=== PATIENT | male | born 1945 | race Caucasian/White ===

== ENCOUNTER 2016-10-22 13:19 | Inpatient (IN) | payer MEDICARE, BC ==
[~2016-10-22] VITALS: Ht 177.8 cm; Wt 140.8 kg
[2016-10-22] VITALS (194 sets, daily range): BP systolic 87; BP diastolic 67; O2SAT 94–100
[~2016-10-22 13:19] MED LIST: 00186-0370-20 IH; ACTOS 45MG45 MG/TAB PO; ALLOPURINOL100 MG PO; ALTABAX15 GM TP; ALTACE2.5 MG PO; AMOXICILLIN 50500 MG PO; ASPIRIN 32325 MG/TAB PO; BACTRIM DS 8001 TAB PO; CALCITRIOL PO; COLACE 100100 MG/CAP PO; COREG 25MG25 MG/TAB PO; COUMADIN; CYMBALTA 60MG60 MG PO; DEMADEX 20MG20 M1 PO; ERGOCALCIFER50000 IU PO; FUROSEMIDE; GLYBURIDE; HUMALOG100 U/ML SQ; IRON325 MG PO; JANUVIA 100MG100 MG PO; KLOR-CON M2020 MEQ PO; LASIX 20MG TABL20 MG; LEVEMIR FLEX100 U/ML SQ; LIPITOR 80MG80 MG PO; MAG-OX 400400 MG/TAB PO; MASON NATURAL2000 IU PO; MIRALAX PA17 GM/Dose PO; NORCO 325 MG-51 TAB PO; NOVOLOG 100U100 U/M1 SQ; NYSTATIN POWDER15 GM TOP; PLAVIX 75MG TAB75 MG PO; POTASSIUM CL 220 MEQ PO; PRINIVIL5 MG PO; PROAIR HFA0.09 MG/AC IH; ROXICODONE 55 MG/TAB PO; RT SPIRIVA18 MCG IH; SPECTAZOLE 1% C15 GM TP; ULORIC80 MG PO; XARELTO20 MG PO; [UNRECOGNIZED DRUG - OTHER] PO
[2016-10-22] MEDS ORDERED: SANCTURA XR60 MG PO (13:29)
[2016-10-22] MEDS ORDERED: PROSCAR 5MG5 MG PO (13:29)
[2016-10-22 14:40] LABS: PH 5 (5-8); SQUAMOUS EPITHELIAL None Seen /hpf; URINE APPEARANCE Hazy; URINE BACTERIA None Seen /hpf; URINE BILIRUBIN Negative (NEGATIVE); URINE BLOOD 1+ (NEGATIVE); URINE COLOR Yellow; URINE GLUCOSE Negative (NEGATIVE); URINE KETONE Negative (NEGATIVE); URINE UROBILINOGEN Negative (NEGATIVE)
[2016-10-22 15:56] LABS: HEMATOCRIT 46.2 % (42.0-52.0); HEMOGLOBIN 15.1 g/dl (13.5-18.0); MEAN CELL VOLUME 89 fl (80.0-100.0); MEAN CORPUSCULAR HEMOGLOBIN 29 pg (27.0-31.0); MEAN CORPUSCULAR HGB CONC 33 g/dl (33.0-37.0); MEAN PLATELET VOLUME 8.7 fl (7.4-10.4); PLATELET COUNT 365 K/mm3 (130-400); RED BLOOD COUNT 5.19 M/mm3 (4.20-5.60); REDCELL DISTRIBUTION WIDTH-CV 14.8 % (11.5-14.5)
[2016-10-22 16:01] LABS: ADD PATHOLOGY DIFF REVIEW NO; ADJUSTED CALCIUM 10.1 mg/dL (8.4-10.2); ALBUMIN 4.1 gm/dL (3.5-5.0); BILIRUBIN,TOTAL 0.9 mg/dL (0.0-1.0); CALCIUM 10.2 mg/dL (8.4-10.2); CREATININE, serum 1.58 mg/dL (0.66-1.25); POTASSIUM 3.4 mmol/L (3.4-5.0); TOTAL PROTEIN 8.5 gm/dL (6.4-8.2)
[2016-10-22 16:31] LABS: BAND 34 % (0-10); NEUTROPHILS 58 % (42.0-75.2); TOTAL CELLS COUNTED 100
[2016-10-22 17:19] LABS: INR 2.3 (0.8-3.0); PROTHROMBIN TIME 25.6 SECONDS (9.7-12.8)
[2016-10-22 17:22] LABS: PARTIAL THROMBOPLASTIN TIME 37.4 SECONDS (26.0-37.0)
[2016-10-22] MEDS ORDERED: VITAMIN D 1001000 IU PO (18:15)
[2016-10-22 21:33] LABS: VENOUS BLOOD GAS BE -2.4 (-4-4)
[2016-10-22 21:34] LABS: VENOUS BLOOD GAS SAO2 61.6 % (60-80); VENOUS BLOOD GAS SITE CENTRAL LINE
[2016-10-22 22:50] LABS: ALLEN TEST NO; ARTERIAL BLD GAS O2 SATURATION 94.5 % (92-100); ARTERIAL BLD GAS TCO2 CT 23.9; ARTERIAL BLOOD GAS HCO3 22.7 meq/L (22-26); ARTERIAL BLOOD GAS PHT 7.39 C (7.35-7.45); ARTERIAL BLOOD GAS pH 7.39 (7.35-7.45); ATS? YES; OXYHEMOGLOBIN 93.4 %
[2016-10-22 23:30] LABS: POTASSIUM 3.4 mmol/L (3.4-5.0)
[2016-10-22 23:34] LABS: C-REACTIVE PROTEIN 6.6 mg/dL (0.0-0.9); MAGNESIUM 1.4 mg/dL (1.6-2.3); PHOSPHOROUS 3.8 mg/dL (2.5-4.5)
[2016-10-22 23:45] LABS: TROPONIN-I 0.091 ng/mL (0.000-0.034)
[2016-10-23] VITALS (1260 sets, daily range): BP systolic 64–142; BP diastolic 39–76; PULSE 76–128; TEMP 96.3–98.5; O2SAT 95–100
[2016-10-23 01:52] LABS: HEMATOCRIT 37.4 % (42.0-52.0); MEAN CELL VOLUME 91 fl (80.0-100.0); MEAN CORPUSCULAR HEMOGLOBIN 29 pg (27.0-31.0); MEAN CORPUSCULAR HGB CONC 32 g/dl (33.0-37.0); MEAN PLATELET VOLUME 8.6 fl (7.4-10.4); PLATELET COUNT 313 K/mm3 (130-400); RED BLOOD COUNT 4.13 M/mm3 (4.20-5.60); REDCELL DISTRIBUTION WIDTH-CV 15.2 % (11.5-14.5)
[2016-10-23 01:56] LABS: WHITE BLOOD COUNT 24.9 K/mm3 (4.8-10.8)
[2016-10-23 01:57] LABS: ADD PATHOLOGY DIFF REVIEW NO
[2016-10-23 02:00] LABS: VENOUS BLOOD GAS BE 0.4 (-4-4); VENOUS BLOOD GAS SAO2 51.6 % (60-80); VENOUS BLOOD GAS SITE CENTRAL LINE
[2016-10-23 02:01] LABS: ADJUSTED CALCIUM 9.2 mg/dL (8.4-10.2); ALBUMIN 2.8 gm/dL (3.5-5.0); BILIRUBIN,TOTAL 0.8 mg/dL (0.0-1.0); CALCIUM 8.2 mg/dL (8.4-10.2); CREATININE, serum 1.92 mg/dL (0.66-1.25); POTASSIUM 3.3 mmol/L (3.4-5.0); TOTAL PROTEIN 6.2 gm/dL (6.4-8.2)
[2016-10-23 02:02] LABS: BAND 45 % (0-10); NEUTROPHILS 46 % (42.0-75.2); TOTAL CELLS COUNTED 100
[2016-10-23 02:14] LABS: TROPONIN-I 0.106 ng/mL (0.000-0.034)
[2016-10-23 05:23] LABS: INR 1.3 (0.8-3.0)
[2016-10-23 05:27] LABS: PH 5 (5-8); SQUAMOUS EPITHELIAL 0-2 /hpf; URINE APPEARANCE Cloudy; URINE BACTERIA Rare /hpf; URINE BILIRUBIN Negative (NEGATIVE); URINE BLOOD 3+ (NEGATIVE); URINE COLOR Amber; URINE GLUCOSE Negative (NEGATIVE); URINE KETONE Negative (NEGATIVE); URINE RBC >50 /hpf; URINE UROBILINOGEN Negative (NEGATIVE); URINE WBC >50 /hpf
[2016-10-23 05:29] LABS: MAGNESIUM 2.1 mg/dL (1.6-2.3); PHOSPHOROUS 2.8 mg/dL (2.5-4.5)
[2016-10-23 05:33] LABS: VENOUS BLOOD GAS BE -4.9 (-4-4); VENOUS BLOOD GAS SITE CENTRAL LINE
[2016-10-23 05:52] LABS: ALLEN TEST NO; ARTERIAL BLD GAS O2 SATURATION 95.6 % (92-100); ARTERIAL BLOOD GAS BASE EXCESS -5.2 (-2-2); ARTERIAL BLOOD GAS HCO3 19.9 meq/L (22-26); ARTERIAL BLOOD GAS PHT 7.35 C (7.35-7.45); ARTERIAL BLOOD GAS PO2 87.6 mmHg (80-100); ARTERIAL BLOOD GAS PO2T 87.6 (80-100); ARTERIAL BLOOD GAS pH 7.35 (7.35-7.45); ATS? YES; OXYHEMOGLOBIN 94.6 %
[2016-10-23 06:16] LABS: POTASSIUM 4.4 mmol/L (3.4-5.0)
[2016-10-23 11:48] LABS: GLUCOSE,PLEURAL FLUID 108 mg/dL
[2016-10-23 11:54] LABS: VENOUS BLOOD GAS BE -3.4 (-4-4); VENOUS BLOOD GAS SAO2 74.1 % (60-80)
[2016-10-23 11:55] LABS: VENOUS BLOOD GAS SITE CENTRAL LINE
[2016-10-23 12:07] LABS: CALCIUM 7.9 mg/dL (8.4-10.2); CREATININE, serum 2.04 mg/dL (0.66-1.25); POTASSIUM 3.8 mmol/L (3.4-5.0)
[2016-10-23 13:21] LABS: PLEURAL FLUID - PMN 48.1 % (0-25)
[2016-10-23 13:21] LABS: CREATININE, serum 2.04 mg/dL (0.66-1.25); FRACTIONAL EXCRETION OF NA+ 0.1 %
[2016-10-23 14:06] LABS: PLEURAL FLUID LEFT SIDE
[2016-10-23 14:07] LABS: PLEURAL FLUID APPEARANCE CLOUDY; PLEURAL FLUID COLOR RED
[2016-10-23 15:14] LABS: BRONCH WASH FLUID MONONUCLEAR 5 % (0-75)
[2016-10-23 15:15] LABS: BRONCH WASH POLY - PMN 95 % (0-25)
[2016-10-23 20:23] LABS: CALCIUM 8.3 mg/dL (8.4-10.2); CREATININE, serum 1.98 mg/dL (0.66-1.25); MAGNESIUM 1.8 mg/dL (1.6-2.3); PHOSPHOROUS 3.3 mg/dL (2.5-4.5)
[2016-10-23 20:54] LABS: ARTERIAL BLD GAS TCO2 CT 22.4; ARTERIAL BLOOD GAS BASE EXCESS -3.2 (-2-2); ARTERIAL BLOOD GAS HCO3 21.3 meq/L (22-26); ARTERIAL BLOOD GAS PHT 7.39 C (7.35-7.45); ARTERIAL BLOOD GAS PO2 96.8 mmHg (80-100); ARTERIAL BLOOD GAS PO2T 96.8 (80-100); ARTERIAL BLOOD GAS pH 7.39 (7.35-7.45); OXYHEMOGLOBIN 96.3 %
[2016-10-23 20:55] LABS: ALLEN TEST NO; ATS? NO
[2016-10-24] VITALS (1219 sets, daily range): BP systolic 90–129; BP diastolic 40–56; PULSE 60–87; TEMP 97.7–99; O2SAT 90–100
[2016-10-24 04:14] LABS: ARTERIAL BLD GAS O2 SATURATION 97.3 % (92-100); ARTERIAL BLOOD GAS BASE EXCESS -5.9 (-2-2); ARTERIAL BLOOD GAS HCO3 18.1 meq/L (22-26); ARTERIAL BLOOD GAS PHT 7.39 C (7.35-7.45); ARTERIAL BLOOD GAS pH 7.39 (7.35-7.45); OXYHEMOGLOBIN 96.4 %
[2016-10-24 04:16] LABS: ABG VENTILATOR TIDAL VOLUME 500 mL; ALLEN TEST NO; ATS? NO
[2016-10-24 05:20] LABS: BASO % 0.2 % (0.0-2.0); GRAN # 17.3 (1.4-6.5); GRAN % 91.2 % (42.2-75.2); LYMPH # 0.4 (1.2-3.4); LYMPH % 1.9 % (20.0-51.0); MEAN CELL VOLUME 91 fl (80.0-100.0); MEAN CORPUSCULAR HGB CONC 32 g/dl (33.0-37.0); MEAN PLATELET VOLUME 8.9 fl (7.4-10.4); MONO # 1.1 (0.1-0.6); MONO % 5.8 % (1.7-9.3); PLATELET COUNT 248 K/mm3 (130-400); REDCELL DISTRIBUTION WIDTH-CV 15.4 % (11.5-14.5); WHITE BLOOD COUNT 18.9 K/mm3 (4.8-10.8)
[2016-10-24 05:29] LABS: INR 1.4 (0.8-3.0); PROTHROMBIN TIME 15.8 SECONDS (9.7-12.8)
[2016-10-24 05:31] LABS: PARTIAL THROMBOPLASTIN TIME 38.6 SECONDS (26.0-37.0)
[2016-10-24 05:33] LABS: HEMATOCRIT 26.5 % (42.0-52.0); HEMOGLOBIN 8.5 g/dl (13.5-18.0); MEAN CORPUSCULAR HEMOGLOBIN 29 pg (27.0-31.0)
[2016-10-24 05:41] LABS: ADJUSTED CALCIUM 9.4 mg/dL (8.4-10.2); ALBUMIN 2.7 gm/dL (3.5-5.0); BILIRUBIN,TOTAL 0.7 mg/dL (0.0-1.0); CALCIUM 8.4 mg/dL (8.4-10.2); CREATININE, serum 1.81 mg/dL (0.66-1.25); MAGNESIUM 1.8 mg/dL (1.6-2.3); PHOSPHOROUS 3.1 mg/dL (2.5-4.5); TOTAL PROTEIN 5.5 gm/dL (6.4-8.2)
[2016-10-24 11:54] LABS: ARTERIAL BLD GAS O2 SATURATION 95.1 % (92-100); ARTERIAL BLD GAS TCO2 CT 20.8; ARTERIAL BLOOD GAS BASE EXCESS -4.6 (-2-2); ARTERIAL BLOOD GAS HCO3 19.7 meq/L (22-26); ARTERIAL BLOOD GAS PHT 7.39 C (7.35-7.45); ARTERIAL BLOOD GAS PO2 82.6 mmHg (80-100); ARTERIAL BLOOD GAS PO2T 82.6 (80-100); ARTERIAL BLOOD GAS pH 7.39 (7.35-7.45); OXYHEMOGLOBIN 94.1 %
[2016-10-24 11:55] LABS: ATS? NO
[2016-10-24 12:27] LABS: HEMATOCRIT 26.1 % (42.0-52.0); HEMOGLOBIN 8.3 g/dl (13.5-18.0)
[2016-10-25] VITALS (986 sets, daily range): BP systolic 119–155; BP diastolic 44–66; PULSE 63–75; TEMP 97.8–99.8; O2SAT 89–100
[2016-10-25 05:05] LABS: ARTERIAL BLD GAS TCO2 CT 23.1; ARTERIAL BLOOD GAS BASE EXCESS -2.4 (-2-2); ARTERIAL BLOOD GAS PHT 7.41 C (7.35-7.45); ARTERIAL BLOOD GAS pH 7.41 (7.35-7.45)
[2016-10-25 05:07] LABS: ALLEN TEST NO; ATS? NO
[2016-10-25 05:09] LABS: MEAN CELL VOLUME 92 fl (80.0-100.0); MEAN CORPUSCULAR HGB CONC 31 g/dl (33.0-37.0); MEAN PLATELET VOLUME 9.2 fl (7.4-10.4); PLATELET COUNT 218 K/mm3 (130-400); RED BLOOD COUNT 2.63 M/mm3 (4.20-5.60); REDCELL DISTRIBUTION WIDTH-CV 15.3 % (11.5-14.5); WHITE BLOOD COUNT 15.9 K/mm3 (4.8-10.8)
[2016-10-25 05:24] LABS: ADD PATHOLOGY DIFF REVIEW NO; HEMATOCRIT 24.2 % (42.0-52.0); HEMOGLOBIN 7.6 g/dl (13.5-18.0); MEAN CORPUSCULAR HEMOGLOBIN 29 pg (27.0-31.0)
[2016-10-25 05:25] LABS: INR 1.2 (0.8-3.0); PROTHROMBIN TIME 13.7 SECONDS (9.7-12.8)
[2016-10-25 05:28] LABS: PARTIAL THROMBOPLASTIN TIME 34.9 SECONDS (26.0-37.0)
[2016-10-25 05:34] LABS: ADJUSTED CALCIUM 9.8 mg/dL (8.4-10.2); ALBUMIN 2.6 gm/dL (3.5-5.0); BILIRUBIN,TOTAL 0.7 mg/dL (0.0-1.0); CALCIUM 8.7 mg/dL (8.4-10.2); CREATININE, serum 1.45 mg/dL (0.66-1.25); MAGNESIUM 1.8 mg/dL (1.6-2.3); PHOSPHOROUS 3.1 mg/dL (2.5-4.5); POTASSIUM 3.2 mmol/L (3.4-5.0); TOTAL PROTEIN 5.6 gm/dL (6.4-8.2)
[2016-10-25 07:00] LABS: BAND 21 % (0-10); HYPOCHROMIA 2+; NEUTROPHILS 75 % (42.0-75.2); PLATELET ESTIMATE NORMAL (NORMAL); TARGET CELLS 1+; TOTAL CELLS COUNTED 100
[2016-10-26] VITALS (1081 sets, daily range): BP systolic 131–155; BP diastolic 65–110; PULSE 60–74; TEMP 97.7–99.2; O2SAT 69–100
[2016-10-26 05:26] LABS: MEAN CELL VOLUME 90 fl (80.0-100.0); MEAN CORPUSCULAR HGB CONC 32 g/dl (33.0-37.0); MEAN PLATELET VOLUME 9.3 fl (7.4-10.4); PLATELET COUNT 241 K/mm3 (130-400); RED BLOOD COUNT 2.69 M/mm3 (4.20-5.60); REDCELL DISTRIBUTION WIDTH-CV 15.6 % (11.5-14.5); WHITE BLOOD COUNT 16.4 K/mm3 (4.8-10.8)
[2016-10-26 05:28] LABS: ADD PATHOLOGY DIFF REVIEW NO; HEMATOCRIT 24.3 % (42.0-52.0); HEMOGLOBIN 7.8 g/dl (13.5-18.0); MEAN CORPUSCULAR HEMOGLOBIN 29 pg (27.0-31.0)
[2016-10-26 05:33] LABS: INR 1.2 (0.8-3.0); PROTHROMBIN TIME 13.2 SECONDS (9.7-12.8)
[2016-10-26 05:46] LABS: ALBUMIN 2.5 gm/dL (3.5-5.0); BILIRUBIN,TOTAL 0.8 mg/dL (0.0-1.0); CALCIUM 8.8 mg/dL (8.4-10.2); CREATININE, serum 1.09 mg/dL (0.66-1.25); TOTAL PROTEIN 5.1 gm/dL (6.4-8.2)
[2016-10-26 06:04] LABS: BAND 24 % (0-10); NEUTROPHILS 73 % (42.0-75.2); TOTAL CELLS COUNTED 100
[2016-10-26 06:05] LABS: HYPOCHROMIA 1+; TARGET CELLS 1+
[2016-10-27] VITALS (506 sets, daily range): BP systolic 106–180; BP diastolic 62–99; PULSE 68–90; TEMP 97–98.4; O2SAT 38–100
[2016-10-27 04:53] LABS: MEAN CELL VOLUME 92 fl (80.0-100.0); MEAN CORPUSCULAR HGB CONC 31 g/dl (33.0-37.0); MEAN PLATELET VOLUME 9.1 fl (7.4-10.4); PLATELET COUNT 303 K/mm3 (130-400); RED BLOOD COUNT 3.13 M/mm3 (4.20-5.60); REDCELL DISTRIBUTION WIDTH-CV 15.7 % (11.5-14.5); WHITE BLOOD COUNT 17.3 K/mm3 (4.8-10.8)
[2016-10-27 05:04] LABS: HEMATOCRIT 28.7 % (42.0-52.0); MEAN CORPUSCULAR HEMOGLOBIN 29 pg (27.0-31.0)
[2016-10-27 05:05] LABS: ADD PATHOLOGY DIFF REVIEW NO; ADJUSTED CALCIUM 9.9 mg/dL (8.4-10.2); ALBUMIN 2.9 gm/dL (3.5-5.0); CREATININE, serum 0.97 mg/dL (0.66-1.25); TOTAL PROTEIN 6.4 gm/dL (6.4-8.2)
[2016-10-27 05:07] LABS: POTASSIUM 2.8 mmol/L (3.4-5.0)
[2016-10-27 05:17] LABS: BAND 4 % (0-10); METAMYELOCYTE 2 % (0-0); MYELOCYTE 2 % (0-0); NEUTROPHILS 85 % (42.0-75.2); PLATELET ESTIMATE NORMAL (NORMAL); TOTAL CELLS COUNTED 100
[2016-10-27 12:12] LABS: MAGNESIUM 1.6 mg/dL (1.6-2.3)
[2016-10-28 01:18] VITALS: BP 152/76; PULSE 82; TEMP 98.1
[2016-10-28 05:18] VITALS: BP 139/85; PULSE 64; TEMP 97.2
[2016-10-28 09:41] VITALS: BP 143/74; PULSE 75; TEMP 96.9
[2016-10-28 13:50] VITALS: BP 143/89; PULSE 67; TEMP 97.9
[2016-10-28 17:47] VITALS: BP 164/87; PULSE 82; TEMP 95.3
[2016-10-29 02:07] VITALS: BP 97/44; PULSE 50; TEMP 97.8
[2016-10-29 05:50] VITALS: BP 150/63; PULSE 87
[2016-10-29 06:59] LABS: MEAN CELL VOLUME 90 fl (80.0-100.0); MEAN CORPUSCULAR HGB CONC 32 g/dl (33.0-37.0); MEAN PLATELET VOLUME 8.9 fl (7.4-10.4); PLATELET COUNT 279 K/mm3 (130-400); RED BLOOD COUNT 3.22 M/mm3 (4.20-5.60); REDCELL DISTRIBUTION WIDTH-CV 16.2 % (11.5-14.5); WHITE BLOOD COUNT 19.5 K/mm3 (4.8-10.8)
[2016-10-29 07:07] LABS: MAGNESIUM 1.8 mg/dL (1.6-2.3); POTASSIUM 3.6 mmol/L (3.4-5.0)
[2016-10-29 07:23] LABS: ADD PATHOLOGY DIFF REVIEW NO; HEMATOCRIT 29.1 % (42.0-52.0); HEMOGLOBIN 9.2 g/dl (13.5-18.0); MEAN CORPUSCULAR HEMOGLOBIN 29 pg (27.0-31.0)
[2016-10-29 07:44] LABS: BAND 10 % (0-10); METAMYELOCYTE 2 % (0-0); MYELOCYTE 2 % (0-0); NEUTROPHILS 85 % (42.0-75.2); TOTAL CELLS COUNTED 100
[2016-10-29 11:28] LABS: CREATININE, serum 0.88 mg/dL (0.66-1.25)
[2016-10-29 17:35] VITALS: BP 120/44; PULSE 79; TEMP 97.7
[2016-10-29 18:49] LABS: ALBUMIN 2.5 gm/dL (3.5-5.0); BILIRUBIN,TOTAL 0.5 mg/dL (0.0-1.0); CALCIUM 8.8 mg/dL (8.4-10.2); CREATININE, serum 0.93 mg/dL (0.66-1.25); POTASSIUM 3.8 mmol/L (3.4-5.0); TOTAL PROTEIN 5.4 gm/dL (6.4-8.2)
[2016-10-29 19:07] LABS: MAGNESIUM 1.8 mg/dL (1.6-2.3); PHOSPHOROUS 2.6 mg/dL (2.5-4.5)
[2016-10-29 20:58] VITALS: BP 131/68; PULSE 80; TEMP 98.1
[2016-10-30 00:14] VITALS: BP 137/76; PULSE 70; TEMP 97.6
[2016-10-30 05:54] VITALS: BP 122/55; PULSE 74; TEMP 98.2
[2016-10-30 06:28] LABS: MEAN CELL VOLUME 92 fl (80.0-100.0); MEAN CORPUSCULAR HGB CONC 31 g/dl (33.0-37.0); MEAN PLATELET VOLUME 9.5 fl (7.4-10.4); PLATELET COUNT 245 K/mm3 (130-400); RED BLOOD COUNT 2.85 M/mm3 (4.20-5.60); REDCELL DISTRIBUTION WIDTH-CV 16.3 % (11.5-14.5); WHITE BLOOD COUNT 13.4 K/mm3 (4.8-10.8)
[2016-10-30 06:33] LABS: CALCIUM 8.6 mg/dL (8.4-10.2); CREATININE, serum 0.94 mg/dL (0.66-1.25); MAGNESIUM 1.7 mg/dL (1.6-2.3); PHOSPHOROUS 2.6 mg/dL (2.5-4.5); POTASSIUM 3.4 mmol/L (3.4-5.0)
[2016-10-30 06:39] LABS: ADD PATHOLOGY DIFF REVIEW NO; HEMATOCRIT 26.3 % (42.0-52.0); HEMOGLOBIN 8.2 g/dl (13.5-18.0); MEAN CORPUSCULAR HEMOGLOBIN 29 pg (27.0-31.0)
[2016-10-30 06:49] LABS: BAND 4 % (0-10); METAMYELOCYTE 2 % (0-0); MYELOCYTE 2 % (0-0); NEUTROPHILS 83 % (42.0-75.2); PLATELET ESTIMATE NORMAL (NORMAL); TOTAL CELLS COUNTED 100
[2016-10-30 09:56] VITALS: BP 153/77; PULSE 77; TEMP 98
[2016-10-30 13:41] VITALS: BP 122/68; PULSE 97; TEMP 97.5
[2016-10-30 17:06] LABS: HEMATOCRIT 27.4 % (42.0-52.0); HEMOGLOBIN 8.7 g/dl (13.5-18.0)
[2016-10-30 18:01] VITALS: BP 139/66; PULSE 73; TEMP 97.9
[2016-10-30 21:56] VITALS: BP 161/64; PULSE 86; TEMP 98.6
[2016-10-31] VITALS (14 sets, daily range): BP systolic 104–152; BP diastolic 45–85; PULSE 52–84; TEMP 97–98.2
[2016-10-31 07:04] LABS: CALCIUM 9.1 mg/dL (8.4-10.2); CREATININE, serum 0.95 mg/dL (0.66-1.25); MAGNESIUM 2.1 mg/dL (1.6-2.3); PHOSPHOROUS 3.3 mg/dL (2.5-4.5); POTASSIUM 3.7 mmol/L (3.4-5.0)
[2016-10-31 14:04] LABS: MEAN CELL VOLUME 95 fl (80.0-100.0); MEAN CORPUSCULAR HGB CONC 30 g/dl (33.0-37.0); MEAN PLATELET VOLUME 9.9 fl (7.4-10.4); PLATELET COUNT 251 K/mm3 (130-400); RED BLOOD COUNT 2.93 M/mm3 (4.20-5.60); REDCELL DISTRIBUTION WIDTH-CV 16.7 % (11.5-14.5); WHITE BLOOD COUNT 13.3 K/mm3 (4.8-10.8)
[2016-10-31 14:15] LABS: HEMATOCRIT 27.8 % (42.0-52.0); HEMOGLOBIN 8.4 g/dl (13.5-18.0); MEAN CORPUSCULAR HEMOGLOBIN 29 pg (27.0-31.0)
[2016-10-31 14:16] LABS: ADD PATHOLOGY DIFF REVIEW NO
[2016-10-31 15:20] LABS: BAND 10 % (0-10); METAMYELOCYTE 1 % (0-0); MYELOCYTE 2 % (0-0); NEUTROPHILS 71 % (42.0-75.2); PLATELET ESTIMATE NORMAL (NORMAL); TOTAL CELLS COUNTED 100
[2016-10-31 15:22] LABS: ANISOCYTOSIS 1+; POLYCHROMASIA 1+
[2016-11-01 02:16] VITALS: BP 115/56; PULSE 67; TEMP 98.1
[2016-11-01 04:45] VITALS: BP 116/32; PULSE 78; TEMP 98.2
[2016-11-01 07:45] LABS: BASO % 0.1 % (0.0-2.0); EOS # 0.1 (0.0-0.7); EOS % 0.7 % (0-4.0); GRAN # 10.6 (1.4-6.5); GRAN % 81.5 % (42.2-75.2); LYMPH # 0.9 (1.2-3.4); LYMPH % 6.7 % (20.0-51.0); MEAN CELL VOLUME 95 fl (80.0-100.0); MEAN CORPUSCULAR HGB CONC 31 g/dl (33.0-37.0); MEAN PLATELET VOLUME 9.9 fl (7.4-10.4); MONO # 0.9 (0.1-0.6); MONO % 7.2 % (1.7-9.3); PLATELET COUNT 224 K/mm3 (130-400); RED BLOOD COUNT 2.84 M/mm3 (4.20-5.60)
[2016-11-01 07:50] LABS: HEMATOCRIT 26.9 % (42.0-52.0); HEMOGLOBIN 8.3 g/dl (13.5-18.0); MEAN CORPUSCULAR HEMOGLOBIN 29 pg (27.0-31.0)
[2016-11-01 08:49] LABS: CALCIUM 8.9 mg/dL (8.4-10.2); CREATININE, serum 0.9 mg/dL (0.66-1.25); MAGNESIUM 2.3 mg/dL (1.6-2.3); PHOSPHOROUS 3.4 mg/dL (2.5-4.5); POTASSIUM 4.1 mmol/L (3.4-5.0)
[2016-11-01 10:09] VITALS: BP 148/65; PULSE 73; TEMP 97.3
[2016-11-01 14:41] VITALS: BP 184/85; PULSE 82; TEMP 97.3
[2016-11-01 16:48] VITALS: BP 159/67; PULSE 77; TEMP 97.7
[2016-11-01 22:27] VITALS: BP 115/24; PULSE 41; TEMP 98.5
[2016-11-02 01:46] VITALS: BP 137/40; PULSE 71; TEMP 98.3
[2016-11-02 04:11] VITALS: BP 114/67; PULSE 47; TEMP 98.2
[2016-11-02 07:50] LABS: BASO % 0.2 % (0.0-2.0); EOS # 0.3 (0.0-0.7); EOS % 1.4 % (0-4.0); GRAN # 15.6 (1.4-6.5); GRAN % 83.7 % (42.2-75.2); LYMPH # 1.1 (1.2-3.4); LYMPH % 5.9 % (20.0-51.0); MEAN CELL VOLUME 94 fl (80.0-100.0); MEAN CORPUSCULAR HGB CONC 31 g/dl (33.0-37.0); MEAN PLATELET VOLUME 9.7 fl (7.4-10.4); MONO # 1.1 (0.1-0.6); MONO % 5.6 % (1.7-9.3); PLATELET COUNT 250 K/mm3 (130-400); REDCELL DISTRIBUTION WIDTH-CV 17.2 % (11.5-14.5); WHITE BLOOD COUNT 18.6 K/mm3 (4.8-10.8)
[2016-11-02 08:04] LABS: HEMOGLOBIN 8.9 g/dl (13.5-18.0); MEAN CORPUSCULAR HEMOGLOBIN 29 pg (27.0-31.0)
[2016-11-02 08:08] LABS: CREATININE, serum 0.8 mg/dL (0.66-1.25); MAGNESIUM 2.1 mg/dL (1.6-2.3); POTASSIUM 3.6 mmol/L (3.4-5.0)
[2016-11-02 09:44] VITALS: BP 152/62; PULSE 85; TEMP 97.7
[2016-11-02 15:35] VITALS: BP 174/67; PULSE 73; TEMP 96.5
[2016-11-02 18:13] VITALS: BP 163/75; PULSE 65; TEMP 97.9
[2016-11-02 22:28] VITALS: BP 152/84; PULSE 75; TEMP 97.5
[2016-11-03 02:03] VITALS: BP 153/73; PULSE 75; TEMP 97.6
[2016-11-03 06:06] VITALS: BP 152/70; PULSE 73; TEMP 97.3
[2016-11-03 07:32] LABS: MEAN CELL VOLUME 93 fl (80.0-100.0); MEAN CORPUSCULAR HGB CONC 31 g/dl (33.0-37.0); MEAN PLATELET VOLUME 9.8 fl (7.4-10.4); PLATELET COUNT 246 K/mm3 (130-400); RED BLOOD COUNT 3.12 M/mm3 (4.20-5.60); REDCELL DISTRIBUTION WIDTH-CV 17.4 % (11.5-14.5); WHITE BLOOD COUNT 17.9 K/mm3 (4.8-10.8)
[2016-11-03 07:37] LABS: ADD PATHOLOGY DIFF REVIEW NO; MEAN CORPUSCULAR HEMOGLOBIN 29 pg (27.0-31.0)
[2016-11-03 08:28] LABS: BAND 1 % (0-10); NEUTROPHILS 85 % (42.0-75.2); TOTAL CELLS COUNTED 100
[2016-11-03 08:29] LABS: ANISOCYTOSIS 2+; HYPOCHROMIA 2+; POLYCHROMASIA 2+
[2016-11-03 10:20] VITALS: BP 144/77; PULSE 62; TEMP 98.1
[2016-11-03 14:53] VITALS: BP 128/85; PULSE 61; TEMP 98.1
[2016-11-03 18:02] VITALS: BP 125/48; PULSE 82; TEMP 98.9
[2016-11-03 20:55] VITALS: BP 138/51; PULSE 73; TEMP 65
[2016-11-04 02:02] VITALS: BP 113/50; PULSE 84; TEMP 97.3
[2016-11-04 05:02] VITALS: BP 104/44; PULSE 89; TEMP 98.4
[2016-11-04 08:06] LABS: CALCIUM 8.6 mg/dL (8.4-10.2); CREATININE, serum 0.94 mg/dL (0.66-1.25); MAGNESIUM 1.8 mg/dL (1.6-2.3); POTASSIUM 4.2 mmol/L (3.4-5.0)
[2016-11-04 08:11] LABS: VANCOMYCIN TROUGH 16.7 ug/mL (7.00-20.00)
[2016-11-04 09:54] VITALS: BP 105/37; PULSE 94; TEMP 98.2
[2016-11-04 13:50] VITALS: BP 120/51; PULSE 91; TEMP 95.6
[2016-11-04 17:03] VITALS: BP 114/65; PULSE 90; TEMP 97.4
[2016-11-04 21:27] VITALS: BP 120/63; PULSE 58; TEMP 98.2
[2016-11-05] VITALS (7 sets, daily range): BP systolic 110–142; BP diastolic 48–70; PULSE 45–83; TEMP 97.2–98.6
[2016-11-05 06:44] LABS: MEAN CELL VOLUME 90 fl (80.0-100.0); MEAN CORPUSCULAR HGB CONC 33 g/dl (33.0-37.0); MEAN PLATELET VOLUME 10.3 fl (7.4-10.4); PLATELET COUNT 210 K/mm3 (130-400); RED BLOOD COUNT 2.94 M/mm3 (4.20-5.60); REDCELL DISTRIBUTION WIDTH-CV 17.4 % (11.5-14.5); WHITE BLOOD COUNT 16.2 K/mm3 (4.8-10.8)
[2016-11-05 06:50] LABS: ADD PATHOLOGY DIFF REVIEW NO; HEMATOCRIT 26.5 % (42.0-52.0); HEMOGLOBIN 8.6 g/dl (13.5-18.0); MEAN CORPUSCULAR HEMOGLOBIN 29 pg (27.0-31.0)
[2016-11-05 07:20] LABS: BAND 6 % (0-10); METAMYELOCYTE 1 % (0-0); NEUTROPHILS 82 % (42.0-75.2); PLATELET ESTIMATE NORMAL (NORMAL); SCHISTOCYTES 1+; TOTAL CELLS COUNTED 100
[2016-11-06 01:52] VITALS: BP 127/68; PULSE 76; TEMP 98.2
[2016-11-06 05:40] VITALS: BP 164/82; TEMP 98.3
[2016-11-06 07:22] LABS: BASO % 0.1 % (0.0-2.0); EOS # 0.1 (0.0-0.7); EOS % 0.4 % (0-4.0); GRAN # 12.7 (1.4-6.5); GRAN % 80.7 % (42.2-75.2); LYMPH # 1.4 (1.2-3.4); LYMPH % 8.8 % (20.0-51.0); MEAN CELL VOLUME 90 fl (80.0-100.0); MEAN CORPUSCULAR HGB CONC 32 g/dl (33.0-37.0); MEAN PLATELET VOLUME 10.4 fl (7.4-10.4); MONO # 1.3 (0.1-0.6); MONO % 8.3 % (1.7-9.3); PLATELET COUNT 232 K/mm3 (130-400); RED BLOOD COUNT 3.06 M/mm3 (4.20-5.60); REDCELL DISTRIBUTION WIDTH-CV 17.6 % (11.5-14.5); WHITE BLOOD COUNT 15.8 K/mm3 (4.8-10.8)
[2016-11-06 07:36] LABS: ADJUSTED CALCIUM 9.6 mg/dL (8.4-10.2); ALBUMIN 2.7 gm/dL (3.5-5.0); BILIRUBIN,TOTAL 0.6 mg/dL (0.0-1.0); CALCIUM 8.6 mg/dL (8.4-10.2); CREATININE, serum 1.03 mg/dL (0.66-1.25); MAGNESIUM 1.9 mg/dL (1.6-2.3); PHOSPHOROUS 3.2 mg/dL (2.5-4.5); POTASSIUM 3.6 mmol/L (3.4-5.0); TOTAL PROTEIN 5.8 gm/dL (6.4-8.2)
[2016-11-06 07:39] LABS: HEMATOCRIT 27.5 % (42.0-52.0); HEMOGLOBIN 8.7 g/dl (13.5-18.0); MEAN CORPUSCULAR HEMOGLOBIN 28 pg (27.0-31.0)
[2016-11-06 10:59] VITALS: BP 146/51; PULSE 80; TEMP 97.9
[2016-11-06 14:22] VITALS: BP 133/62; PULSE 76; TEMP 97.6
[2016-11-06 17:33] VITALS: BP 115/46; PULSE 73; TEMP 97.9
[2016-11-06 21:33] VITALS: BP 116/51; PULSE 70; TEMP 98.1
[2016-11-07 02:04] VITALS: BP 114/78; PULSE 66; TEMP 97.8
[2016-11-07 04:55] VITALS: BP 131/70; PULSE 70; TEMP 98.7
[2016-11-07 10:48] LABS: ARTERIAL BLD GAS O2 SATURATION 94.3 % (92-100); ARTERIAL BLD GAS TCO2 CT 30.2; ARTERIAL BLOOD GAS BASE EXCESS 5.4 (-2-2); ARTERIAL BLOOD GAS PHT 7.49 C (7.35-7.45); ARTERIAL BLOOD GAS PO2 72.2 mmHg (80-100); ARTERIAL BLOOD GAS PO2T 72.2 (80-100); ARTERIAL BLOOD GAS pH 7.49 (7.35-7.45); OXYHEMOGLOBIN 93.8 %
[2016-11-07 10:49] LABS: ALLEN TEST NO; ATS? YES
[2016-11-07 15:06] VITALS: BP 139/92; PULSE 72; TEMP 97.8
[2016-11-07 18:58] VITALS: BP 96/46; PULSE 83; TEMP 99.2
[2016-11-07 22:28] VITALS: BP 118/54; PULSE 81; TEMP 98
[2016-11-08 05:36] VITALS: BP 138/84; PULSE 86; TEMP 98.3
[2016-11-08 07:26] LABS: CALCIUM 8.2 mg/dL (8.4-10.2); CREATININE, serum 1.05 mg/dL (0.66-1.25); MAGNESIUM 1.8 mg/dL (1.6-2.3); PHOSPHOROUS 3.8 mg/dL (2.5-4.5); POTASSIUM 3.9 mmol/L (3.4-5.0)
[2016-11-08 07:27] LABS: BASO % 0.1 % (0.0-2.0); EOS # 0.1 (0.0-0.7); EOS % 0.9 % (0-4.0); GRAN % 75.2 % (42.2-75.2); LYMPH # 1.2 (1.2-3.4); LYMPH % 12.6 % (20.0-51.0); MEAN CELL VOLUME 92 fl (80.0-100.0); MEAN CORPUSCULAR HGB CONC 31 g/dl (33.0-37.0); MEAN PLATELET VOLUME 10.1 fl (7.4-10.4); MONO # 0.9 (0.1-0.6); MONO % 10.2 % (1.7-9.3); PLATELET COUNT 230 K/mm3 (130-400); RED BLOOD COUNT 3.03 M/mm3 (4.20-5.60); REDCELL DISTRIBUTION WIDTH-CV 18.1 % (11.5-14.5); WHITE BLOOD COUNT 9.2 K/mm3 (4.8-10.8)
[2016-11-08 07:33] LABS: HEMATOCRIT 27.8 % (42.0-52.0); HEMOGLOBIN 8.7 g/dl (13.5-18.0); MEAN CORPUSCULAR HEMOGLOBIN 29 pg (27.0-31.0)
[2016-11-08 09:25] VITALS: BP 131/57; PULSE 68; TEMP 96.4
[2016-11-08] MEDS ORDERED: CIPRO 500MG TA500 MG PO (12:40)
[2016-11-08] MEDS ORDERED: FLAGYL500 MG PO (12:41)
[2016-11-08] MEDS ORDERED: DIFLUCAN 100MG100 MG PO (12:41)
[2016-11-08] MEDS ORDERED: PRILOSEC 20MG20 MG PO (12:44)
[2016-11-08 13:36] VITALS: BP 112/51; PULSE 75; TEMP 95.9
[2016-11-08 14:26] VITALS: BP 112/51; PULSE 75; TEMP 95.9
[2016-12-24] MEDS ORDERED: ULORIC80 MG PO (08:56)
[2016-12-27] MEDS ORDERED: CLEOCIN HCL300 MG PO (14:16)
== END 2016-11-08 15:00 | DRG 853 ==
LOC: COL.ER 13:19 → SURG 18:27 → ICU 18:27 → SURG 10-27 16:05
PROVIDERS: Anesthesiology Critical Care Medicine; Emergency Medicine; Family Medicine; Internal Medicine; Internal Medicine Pulmonary Disease; Surgery
PROC: 0DNS0ZZ (ICD-10-PCS; 2016-10-22)
PROC: 0B958ZZ Drainage of Right Middle Lobe Bronchus, Via Natural or Artificial Opening Endoscopic (ICD-10-PCS; 2016-10-22)
PROC: 0B968ZZ Drainage of Right Lower Lobe Bronchus, Via Natural or Artificial Opening Endoscopic (ICD-10-PCS; 2016-10-22)
PROC: 0DJ08ZZ Inspection of Upper Intestinal Tract, Via Natural or Artificial Opening Endoscopic (ICD-10-PCS; 2016-10-22)
PROC: 0BJ08ZZ Inspection of Tracheobronchial Tree, Via Natural or Artificial Opening Endoscopic (ICD-10-PCS; 2016-10-22)
PROC: 5A1945Z Respiratory Ventilation, 24-96 Consecutive Hours (ICD-10-PCS; 2016-10-22)
PROC: 0WQF0ZZ Repair Abdominal Wall, Open Approach (ICD-10-PCS; principal; 2016-10-22 06:30)
PROC: 0WJG0ZZ Inspection of Peritoneal Cavity, Open Approach (ICD-10-PCS; 2016-10-22 06:30)
PROC: 0W9B3ZX Drainage of Left Pleural Cavity, Percutaneous Approach, Diagnostic (ICD-10-PCS; 2016-10-23)
PROC: 0B968ZZ Drainage of Right Lower Lobe Bronchus, Via Natural or Artificial Opening Endoscopic (ICD-10-PCS; 2016-10-29)
PROC: 0B9B8ZZ Drainage of Left Lower Lobe Bronchus, Via Natural or Artificial Opening Endoscopic (ICD-10-PCS; 2016-10-29)
PROC: 0B968ZZ Drainage of Right Lower Lobe Bronchus, Via Natural or Artificial Opening Endoscopic (ICD-10-PCS; 2016-11-07)
PROC: 0B988ZZ Drainage of Left Upper Lobe Bronchus, Via Natural or Artificial Opening Endoscopic (ICD-10-PCS; 2016-11-07)
DX: A41.02 Sepsis due to Methicillin resistant Staphylococcus aureus (principal); K65.0 Generalized (acute) peritonitis; K55.019 Acute (reversible) ischemia of small intestine, extent unspecified; R65.21 Severe sepsis with septic shock; J15.212 Pneumonia due to Methicillin resistant Staphylococcus aureus; J96.21 Acute and chronic respiratory failure with hypoxia; K43.0 Incisional hernia with obstruction, without gangrene; K42.0 Umbilical hernia with obstruction, without gangrene; J90 Pleural effusion, not elsewhere classified; I13.0 Hypertensive heart and chronic kidney disease with heart failure and stage 1 through stage 4 chronic kidney disease, or unspecified chronic kidney disease; Z68.42 Body mass index [BMI] 45.0-49.9, adult; E87.2 Acidosis; K91.3 Postprocedural intestinal obstruction; E46 Unspecified protein-calorie malnutrition; N17.9 Acute kidney failure, unspecified; F05 Delirium due to known physiological condition; I50.32 Chronic diastolic (congestive) heart failure; J98.11 Atelectasis; E11.22 Type 2 diabetes mellitus with diabetic chronic kidney disease; N18.9 Chronic kidney disease, unspecified; E66.01 Morbid (severe) obesity due to excess calories; I25.10 Atherosclerotic heart disease of native coronary artery without angina pectoris; J44.9 Chronic obstructive pulmonary disease, unspecified; E87.6 Hypokalemia; F32.89 Other specified depressive episodes; F41.1 Generalized anxiety disorder; I48.91 Unspecified atrial fibrillation; Z79.01 Long term (current) use of anticoagulants; Z95.5 Presence of coronary angioplasty implant and graft; K66.0 Peritoneal adhesions (postprocedural) (postinfection)
CPT/HCPCS: 90791-AI; 99223-AI; 99232-AI; 99233-AI; A4315; A9284; B4178; C1751; C1894; C9113; C9132; G9654; J0282; J0610; J0744; J1450; J1644; J1720; J1815; J1940; J2250; J2270; J2370; J2405; J2704; J2997; J3010; J3370; J3475; J3480; J7030; J7050; J7060; J7120; J7131; J7512; P9047

== ENCOUNTER 2016-12-04 20:36 | Inpatient (IN) | payer MEDICARE, BC ==
[~2016-12-04] VITALS: Ht 177.8 cm; Wt 131.9 kg
[~2016-12-04 20:36] MED LIST changes: -AZO-STANDARD95 MG PO; -CLEOCIN HCL300 MG PO; -DEMADEX10 MG PO; -DOXYCYCLINE 10100 MG PO; -DOXYCYCLINE HY100 MG PO; -GAS RELIEF EXT125 MG PO; -HEPARIN LOCK FLU5 M1 IV; -ILOTYCIN5 MG/GM OP; -IPRATROPIUM BROM3 M1 IH; -K-DUR20 MEQ PO; -LEVEMIR100 U/ML SQ; -LOPRESSOR 225 MG/TAB PO; -MILK OF MA400 MG/52; -MUCINEX 60600 MG/TA1 PO; -MUCINEX D 12001 TER PO; -MUCINEX DM 30 M1 TE1; -NOVOLOG FLEX100 U/ML SQ; -NS INT FLUSH 1010 ML IV; -NYAMYC100000 U/G TP; -PROBIOTIC FORMU1 CAP PO; -PROVENTIL0.09 MG/A1 IH; -STOOL SOFTENER100 M2 PO; -TOPROL XL 25MG25 MG PO; -TYLENOL 325MG325 MG PO; -VITAMIN D 50,1.25 MG PO; -XOPENEX HF0.045 MG/A IH; -XOPENEX HF0.045 MG/A INH; -[UNRECOGNIZED DRUG - OTHER] PO
[2016-12-04 21:40] LABS: BASO % 0.4 % (0.0-2.0); EOS # 0.1 (0.0-0.7); GRAN # 7.7 (1.4-6.5); GRAN % 71.4 % (42.2-75.2); LYMPH # 1.9 (1.2-3.4); LYMPH % 17.2 % (20.0-51.0); MEAN CELL VOLUME 91 fl (80.0-100.0); MEAN CORPUSCULAR HGB CONC 31 g/dl (33.0-37.0); MEAN PLATELET VOLUME 8.6 fl (7.4-10.4); MONO % 9.2 % (1.7-9.3); PLATELET COUNT 302 K/mm3 (130-400); RED BLOOD COUNT 3.91 M/mm3 (4.20-5.60); REDCELL DISTRIBUTION WIDTH-CV 16.1 % (11.5-14.5); WHITE BLOOD COUNT 10.8 K/mm3 (4.8-10.8)
[2016-12-04 21:41] LABS: HEMATOCRIT 35.7 % (42.0-52.0); MEAN CORPUSCULAR HEMOGLOBIN 28 pg (27.0-31.0)
[2016-12-04 21:47] LABS: PARTIAL THROMBOPLASTIN TIME 43.3 SECONDS (26.0-37.0)
[2016-12-04 21:50] LABS: ADJUSTED CALCIUM 9.5 mg/dL (8.4-10.2); ALBUMIN 3.4 gm/dL (3.5-5.0); BILIRUBIN,TOTAL 0.8 mg/dL (0.0-1.0); POTASSIUM 4.4 mmol/L (3.4-5.0); TOTAL PROTEIN 6.9 gm/dL (6.4-8.2)
[2016-12-04 21:53] LABS: INR 2.3 (0.8-3.0); PROTHROMBIN TIME 25.9 SECONDS (9.7-12.8)
[2016-12-04 21:57] LABS: PH 5 (5-8); SQUAMOUS EPITHELIAL 0-2 /hpf; URINE APPEARANCE Clear; URINE BACTERIA Rare /hpf; URINE BILIRUBIN Negative (NEGATIVE); URINE BLOOD Negative (NEGATIVE); URINE COLOR Yellow; URINE GLUCOSE Negative (NEGATIVE); URINE KETONE Negative (NEGATIVE); URINE UROBILINOGEN Negative (NEGATIVE)
[2016-12-04] MEDS ORDERED: CYMBALTA 60MG60 MG PO (22:46)
[2016-12-04] MEDS ORDERED: JANUVIA 100MG100 MG PO (22:46)
[2016-12-05] VITALS (8 sets, daily range): BP systolic 109–164; BP diastolic 50–105; PULSE 70–98; TEMP 97.5–98.2
[2016-12-05 08:31] LABS: BASO % 0.3 % (0.0-2.0); EOS # 0.1 (0.0-0.7); EOS % 1.3 % (0-4.0); GRAN # 6.9 (1.4-6.5); GRAN % 71.2 % (42.2-75.2); LYMPH # 1.5 (1.2-3.4); LYMPH % 15.5 % (20.0-51.0); MEAN CELL VOLUME 92 fl (80.0-100.0); MEAN CORPUSCULAR HGB CONC 31 g/dl (33.0-37.0); MEAN PLATELET VOLUME 8.8 fl (7.4-10.4); MONO % 10.7 % (1.7-9.3); PLATELET COUNT 295 K/mm3 (130-400); RED BLOOD COUNT 3.91 M/mm3 (4.20-5.60); REDCELL DISTRIBUTION WIDTH-CV 16.1 % (11.5-14.5); WHITE BLOOD COUNT 9.7 K/mm3 (4.8-10.8)
[2016-12-05 08:41] LABS: HEMATOCRIT 35.8 % (42.0-52.0); MEAN CORPUSCULAR HEMOGLOBIN 28 pg (27.0-31.0)
[2016-12-05 08:43] LABS: CALCIUM 8.8 mg/dL (8.4-10.2); CREATININE, serum 0.93 mg/dL (0.66-1.25); POTASSIUM 3.4 mmol/L (3.4-5.0)
[2016-12-05 18:33] LABS: MAGNESIUM 1.7 mg/dL (1.6-2.3)
[2016-12-06 02:35] VITALS: BP 138/82; PULSE 80; TEMP 97.5
[2016-12-06 05:28] VITALS: BP 140/71; PULSE 63; TEMP 98.3
[2016-12-06 09:32] VITALS: BP 132/84; PULSE 88; TEMP 98.4
[2016-12-06 18:55] VITALS: BP 138/71; PULSE 91; TEMP 98.9
[2016-12-06 20:21] VITALS: BP 155/76; PULSE 97; TEMP 98.3
[2016-12-07 01:56] VITALS: BP 127/55; PULSE 92; TEMP 98.2
[2016-12-07 06:03] VITALS: BP 148/78; PULSE 90; TEMP 98.4
[2016-12-07 09:52] LABS: BASO % 0.2 % (0.0-2.0); EOS # 0.2 (0.0-0.7); EOS % 1.2 % (0-4.0); GRAN # 10.9 (1.4-6.5); GRAN % 82.5 % (42.2-75.2); LYMPH % 7.4 % (20.0-51.0); MEAN CELL VOLUME 90 fl (80.0-100.0); MEAN CORPUSCULAR HGB CONC 31 g/dl (33.0-37.0); MEAN PLATELET VOLUME 8.6 fl (7.4-10.4); MONO # 1.1 (0.1-0.6); PLATELET COUNT 278 K/mm3 (130-400); RED BLOOD COUNT 3.97 M/mm3 (4.20-5.60); REDCELL DISTRIBUTION WIDTH-CV 15.8 % (11.5-14.5); WHITE BLOOD COUNT 13.2 K/mm3 (4.8-10.8)
[2016-12-07 09:53] LABS: HEMATOCRIT 35.8 % (42.0-52.0); HEMOGLOBIN 11.1 g/dl (13.5-18.0); MEAN CORPUSCULAR HEMOGLOBIN 28 pg (27.0-31.0)
[2016-12-07 10:00] LABS: CALCIUM 9.4 mg/dL (8.4-10.2); CREATININE, serum 0.77 mg/dL (0.66-1.25); POTASSIUM 3.4 mmol/L (3.4-5.0)
[2016-12-07 10:01] LABS: ADJUSTED CALCIUM 9.9 mg/dL (8.4-10.2); ALBUMIN 3.1 gm/dL (3.5-5.0); BILIRUBIN,TOTAL 1.2 mg/dL (0.0-1.0); CALCIUM 9.2 mg/dL (8.4-10.2); CREATININE, serum 0.82 mg/dL (0.66-1.25); POTASSIUM 3.4 mmol/L (3.4-5.0); TOTAL PROTEIN 6.7 gm/dL (6.4-8.2)
[2016-12-07 10:12] VITALS: BP 146/94; PULSE 95; TEMP 97.7
[2016-12-07 10:26] LABS: PHOSPHOROUS 3.2 mg/dL (2.5-4.5)
[2016-12-07 14:18] VITALS: BP 138/68; PULSE 85; TEMP 98.3
[2016-12-07 17:12] VITALS: BP 156/102; PULSE 80
[2016-12-07 21:06] VITALS: BP 146/65; PULSE 92; TEMP 98.1
[2016-12-08 01:59] VITALS: BP 130/77; PULSE 73; TEMP 98
[2016-12-08 06:41] VITALS: BP 146/63; PULSE 83; TEMP 98.2
[2016-12-08 07:28] LABS: BASO % 0.2 % (0.0-2.0); EOS # 0.2 (0.0-0.7); EOS % 1.3 % (0-4.0); GRAN # 9.7 (1.4-6.5); GRAN % 76.5 % (42.2-75.2); LYMPH # 1.4 (1.2-3.4); LYMPH % 11.1 % (20.0-51.0); MEAN CELL VOLUME 90 fl (80.0-100.0); MEAN CORPUSCULAR HGB CONC 31 g/dl (33.0-37.0); MONO # 1.3 (0.1-0.6); MONO % 10.1 % (1.7-9.3); PLATELET COUNT 304 K/mm3 (130-400); RED BLOOD COUNT 3.92 M/mm3 (4.20-5.60); WHITE BLOOD COUNT 12.7 K/mm3 (4.8-10.8)
[2016-12-08 07:29] LABS: HEMATOCRIT 35.4 % (42.0-52.0); HEMOGLOBIN 10.8 g/dl (13.5-18.0); MEAN CORPUSCULAR HEMOGLOBIN 28 pg (27.0-31.0)
[2016-12-08 07:32] LABS: CALCIUM 9.1 mg/dL (8.4-10.2); CREATININE, serum 0.87 mg/dL (0.66-1.25); MAGNESIUM 2.1 mg/dL (1.6-2.3); POTASSIUM 3.4 mmol/L (3.4-5.0)
[2016-12-08 09:53] VITALS: BP 100/33; PULSE 89; TEMP 98.5
[2016-12-08 13:53] VITALS: BP 138/79; PULSE 94; TEMP 97.9
[2016-12-08] MEDS ORDERED: CLEOCIN HCL300 MG PO (16:05)
[2016-12-08] MEDS ORDERED: ILOTYCIN5 MG/GM OP (16:12)
[2016-12-24] MEDS ORDERED: ULORIC80 MG PO (08:56)
[2016-12-27] MEDS ORDERED: CLEOCIN HCL300 MG PO (14:16)
== END 2016-12-08 17:15 | disposition home health service (06) | DRG 392 ==
LOC: COL.ER 20:36 → SURG 23:02
PROVIDERS: Emergency Medicine; Internal Medicine; Nurse Practitioner Family; Surgery
DX: K59.00 Constipation, unspecified (principal); Z68.41 Body mass index [BMI] 40.0-44.9, adult; I13.0 Hypertensive heart and chronic kidney disease with heart failure and stage 1 through stage 4 chronic kidney disease, or unspecified chronic kidney disease; I50.32 Chronic diastolic (congestive) heart failure; J90 Pleural effusion, not elsewhere classified; K43.2 Incisional hernia without obstruction or gangrene; I48.2 Chronic atrial fibrillation; J44.9 Chronic obstructive pulmonary disease, unspecified; I25.10 Atherosclerotic heart disease of native coronary artery without angina pectoris; Z95.5 Presence of coronary angioplasty implant and graft; E66.01 Morbid (severe) obesity due to excess calories; E11.22 Type 2 diabetes mellitus with diabetic chronic kidney disease; N18.3 Chronic kidney disease, stage 3 (moderate); E11.42 Type 2 diabetes mellitus with diabetic polyneuropathy; Z79.4 Long term (current) use of insulin; K11.21 Acute sialoadenitis
CPT/HCPCS: 99223-AI; 99232-AI; 99239; J1170; J1815; J2765; J3010; J7030; Q9967

== ENCOUNTER → 2016-12-04 | Outpatient (REF) ==
[~2016-12-04] MED LIST changes: +AZO-STANDARD95 MG PO; +CIPRO 500MG TA500 MG PO; +CLEOCIN HCL300 MG PO; +DEMADEX10 MG PO; +DIFLUCAN 100MG100 MG PO; +DOXYCYCLINE 10100 MG PO; +DOXYCYCLINE HY100 MG PO; +FLAGYL500 MG PO; +GAS RELIEF EXT125 MG PO; +HEPARIN LOCK FLU5 M1 IV; +ILOTYCIN5 MG/GM OP; +IPRATROPIUM BROM3 M1 IH; +K-DUR20 MEQ PO; +LEVEMIR100 U/ML SQ; +LOPRESSOR 225 MG/TAB PO; +MILK OF MA400 MG/52; +MUCINEX 60600 MG/TA1 PO; +MUCINEX D 12001 TER PO; +MUCINEX DM 30 M1 TE1; +NOVOLOG FLEX100 U/ML SQ; +NS INT FLUSH 1010 ML IV; +NYAMYC100000 U/G TP; +PRILOSEC 20MG20 MG PO; +PROBIOTIC FORMU1 CAP PO; +PROSCAR 5MG5 MG PO; +PROVENTIL0.09 MG/A1 IH; +SANCTURA XR60 MG PO; +STOOL SOFTENER100 M2 PO; +TOPROL XL 25MG25 MG PO; +TYLENOL 325MG325 MG PO; +VITAMIN D 1001000 IU PO; +VITAMIN D 50,1.25 MG PO; +XOPENEX HF0.045 MG/A IH; +XOPENEX HF0.045 MG/A INH; +[UNRECOGNIZED DRUG - OTHER] PO
== END ==
LOC: ZAIV 06:20
DX: Z09 Encounter for follow-up examination after completed treatment for conditions other than malignant neoplasm (principal)

== ENCOUNTER 2016-12-18 11:46 | Inpatient (IN) | payer MEDICARE, BC ==
[~2016-12-18] VITALS: Ht 177.8 cm; Wt 128.2 kg
[~2016-12-18 11:46] MED LIST changes: +CLEOCIN HCL300 MG PO; +ILOTYCIN5 MG/GM OP
[2016-12-18 14:58] VITALS: BP 130/76; PULSE 66; TEMP 97.8
[2016-12-18] MEDS ORDERED: PRILOSEC 20MG20 MG PO (15:02)
[2016-12-18] MEDS ORDERED: MUCINEX 60600 MG/TA1 PO (15:03)
[2016-12-18] MEDS ORDERED: TYLENOL 325MG325 MG PO (15:05)
[2016-12-18] MEDS ORDERED: MILK OF MA400 MG/52 (15:06)
[2016-12-18 15:42] LABS: BASO % 0.2 % (0.0-2.0); EOS # 0.1 (0.0-0.7); EOS % 0.3 % (0-4.0); GRAN # 13.2 (1.4-6.5); GRAN % 81.9 % (42.2-75.2); LYMPH # 1.3 (1.2-3.4); MEAN CELL VOLUME 90 fl (80.0-100.0); MEAN CORPUSCULAR HGB CONC 31 g/dl (33.0-37.0); MEAN PLATELET VOLUME 8.7 fl (7.4-10.4); MONO # 1.3 (0.1-0.6); MONO % 7.9 % (1.7-9.3); PLATELET COUNT 401 K/mm3 (130-400); RED BLOOD COUNT 3.54 M/mm3 (4.20-5.60); REDCELL DISTRIBUTION WIDTH-CV 15.6 % (11.5-14.5); WHITE BLOOD COUNT 16.2 K/mm3 (4.8-10.8)
[2016-12-18 15:44] LABS: HEMOGLOBIN 9.8 g/dl (13.5-18.0); MEAN CORPUSCULAR HEMOGLOBIN 28 pg (27.0-31.0)
[2016-12-18 15:54] LABS: ADJUSTED CALCIUM 9.7 mg/dL (8.4-10.2); ALBUMIN 2.8 gm/dL (3.5-5.0); BILIRUBIN,TOTAL 0.5 mg/dL (0.0-1.0); CALCIUM 8.7 mg/dL (8.4-10.2); CREATININE, serum 0.72 mg/dL (0.66-1.25); POTASSIUM 3.3 mmol/L (3.4-5.0); TOTAL PROTEIN 6.3 gm/dL (6.4-8.2)
[2016-12-18 20:45] VITALS: BP 157/106; PULSE 88; TEMP 98.1
[2016-12-19] VITALS (7 sets, daily range): BP systolic 114–179; BP diastolic 47–91; PULSE 53–100; TEMP 97.3–99.3
[2016-12-19 07:01] LABS: BASO % 0.2 % (0.0-2.0); EOS # 0.2 (0.0-0.7); EOS % 1.2 % (0-4.0); GRAN # 10.4 (1.4-6.5); LYMPH # 1.4 (1.2-3.4); LYMPH % 10.5 % (20.0-51.0); MEAN CELL VOLUME 91 fl (80.0-100.0); MEAN CORPUSCULAR HGB CONC 30 g/dl (33.0-37.0); MEAN PLATELET VOLUME 8.6 fl (7.4-10.4); MONO # 1.1 (0.1-0.6); MONO % 8.2 % (1.7-9.3); PLATELET COUNT 405 K/mm3 (130-400); REDCELL DISTRIBUTION WIDTH-CV 15.7 % (11.5-14.5); WHITE BLOOD COUNT 13.3 K/mm3 (4.8-10.8)
[2016-12-19 07:15] LABS: CREATININE, serum 0.73 mg/dL (0.66-1.25)
[2016-12-19 07:40] LABS: HEMATOCRIT 33.5 % (42.0-52.0); MEAN CORPUSCULAR HEMOGLOBIN 27 pg (27.0-31.0)
[2016-12-20 02:05] VITALS: BP 169/85; PULSE 88; TEMP 98.7
[2016-12-20 07:03] LABS: INR 1.2 (0.8-3.0); PROTHROMBIN TIME 13.1 SECONDS (9.7-12.8)
[2016-12-20 07:05] LABS: BASO % 0.3 % (0.0-2.0); EOS # 0.2 (0.0-0.7); EOS % 1.7 % (0-4.0); GRAN % 78.9 % (42.2-75.2); LYMPH # 1.2 (1.2-3.4); LYMPH % 9.3 % (20.0-51.0); MEAN CELL VOLUME 89 fl (80.0-100.0); MEAN CORPUSCULAR HGB CONC 31 g/dl (33.0-37.0); MEAN PLATELET VOLUME 8.6 fl (7.4-10.4); MONO # 1.1 (0.1-0.6); MONO % 8.4 % (1.7-9.3); PLATELET COUNT 385 K/mm3 (130-400); REDCELL DISTRIBUTION WIDTH-CV 15.7 % (11.5-14.5); WHITE BLOOD COUNT 12.6 K/mm3 (4.8-10.8)
[2016-12-20 07:06] LABS: ADJUSTED CALCIUM 9.7 mg/dL (8.4-10.2); ALBUMIN 2.7 gm/dL (3.5-5.0); BILIRUBIN,TOTAL 0.6 mg/dL (0.0-1.0); CALCIUM 8.7 mg/dL (8.4-10.2); CREATININE, serum 0.72 mg/dL (0.66-1.25); MAGNESIUM 1.6 mg/dL (1.6-2.3); PARTIAL THROMBOPLASTIN TIME 33.9 SECONDS (26.0-37.0); PHOSPHOROUS 2.5 mg/dL (2.5-4.5)
[2016-12-20 07:08] LABS: POTASSIUM 2.9 mmol/L (3.4-5.0)
[2016-12-20 07:11] LABS: HEMATOCRIT 32.1 % (42.0-52.0); HEMOGLOBIN 9.9 g/dl (13.5-18.0); MEAN CORPUSCULAR HEMOGLOBIN 28 pg (27.0-31.0)
[2016-12-20 08:13] VITALS: BP 155/97; PULSE 98; TEMP 97.6
[2016-12-20 14:01] LABS: GLUCOSE,PLEURAL FLUID 117 mg/dL
[2016-12-20 14:04] LABS: PLEURAL FLUID - PMN 15.4 % (0-25)
[2016-12-20 14:11] LABS: PLEURAL FLUID RIGHT SIDE; PLEURAL FLUID APPEARANCE CLOUDY; PLEURAL FLUID COLOR RED
[2016-12-20 15:19] VITALS: BP 148/75; PULSE 95; TEMP 97.9
[2016-12-20 17:21] LABS: MAGNESIUM 1.6 mg/dL (1.6-2.3); POTASSIUM 3.3 mmol/L (3.4-5.0)
[2016-12-20 20:42] VITALS: BP 156/68; PULSE 91; TEMP 97.5
[2016-12-21] VITALS (11 sets, daily range): BP systolic 122–175; BP diastolic 62–94; PULSE 70–97; TEMP 97.5–100
[2016-12-21 07:40] LABS: BASO % 0.3 % (0.0-2.0); EOS # 0.3 (0.0-0.7); EOS % 2.2 % (0-4.0); GRAN # 11.2 (1.4-6.5); GRAN % 79.6 % (42.2-75.2); LYMPH # 1.2 (1.2-3.4); LYMPH % 8.6 % (20.0-51.0); MEAN CELL VOLUME 88 fl (80.0-100.0); MEAN CORPUSCULAR HGB CONC 31 g/dl (33.0-37.0); MEAN PLATELET VOLUME 8.8 fl (7.4-10.4); MONO # 1.2 (0.1-0.6); MONO % 8.2 % (1.7-9.3); PLATELET COUNT 376 K/mm3 (130-400); RED BLOOD COUNT 3.68 M/mm3 (4.20-5.60); REDCELL DISTRIBUTION WIDTH-CV 15.9 % (11.5-14.5); WHITE BLOOD COUNT 14.1 K/mm3 (4.8-10.8)
[2016-12-21 07:50] LABS: CALCIUM 8.7 mg/dL (8.4-10.2); CREATININE, serum 0.7 mg/dL (0.66-1.25); MAGNESIUM 1.5 mg/dL (1.6-2.3); POTASSIUM 3.1 mmol/L (3.4-5.0)
[2016-12-21 07:51] LABS: HEMATOCRIT 32.4 % (42.0-52.0); HEMOGLOBIN 9.9 g/dl (13.5-18.0); MEAN CORPUSCULAR HEMOGLOBIN 27 pg (27.0-31.0)
[2016-12-22 00:45] VITALS: BP 144/76; PULSE 87; TEMP 97.7
[2016-12-22 05:16] VITALS: BP 168/72; PULSE 97; TEMP 97.2
[2016-12-22 07:13] LABS: MEAN CELL VOLUME 91 fl (80.0-100.0); MEAN CORPUSCULAR HGB CONC 31 g/dl (33.0-37.0); MEAN PLATELET VOLUME 8.8 fl (7.4-10.4); RED BLOOD COUNT 2.66 M/mm3 (4.20-5.60); REDCELL DISTRIBUTION WIDTH-CV 16.4 % (11.5-14.5); WHITE BLOOD COUNT 10.6 K/mm3 (4.8-10.8)
[2016-12-22 07:22] LABS: ADD PATHOLOGY DIFF REVIEW NO; HEMATOCRIT 24.2 % (42.0-52.0); HEMOGLOBIN 7.4 g/dl (13.5-18.0); MEAN CORPUSCULAR HEMOGLOBIN 28 pg (27.0-31.0); PLATELET COUNT 267 K/mm3 (130-400)
[2016-12-22 07:23] LABS: CALCIUM 6.3 mg/dL (8.4-10.2); CREATININE, serum 0.64 mg/dL (0.66-1.25); MAGNESIUM 1.3 mg/dL (1.6-2.3)
[2016-12-22 07:27] LABS: POTASSIUM 2.9 mmol/L (3.4-5.0)
[2016-12-22 07:55] LABS: BAND 3 % (0-10); EOSINOPHIL 6 % (0-4); NEUTROPHILS 82 % (42.0-75.2); TOTAL CELLS COUNTED 100
[2016-12-22 08:28] VITALS: BP 156/82; PULSE 86; TEMP 98
[2016-12-22 08:44] LABS: BASO # 0.1 (0.0-0.2); BASO % 0.5 % (0.0-2.0); EOS # 0.5 (0.0-0.7); EOS % 3.7 % (0-4.0); GRAN # 9.7 (1.4-6.5); GRAN % 73.9 % (42.2-75.2); HEMATOCRIT 29.3 % (42.0-52.0); HEMOGLOBIN 9.1 g/dl (13.5-18.0); LYMPH # 1.5 (1.2-3.4); LYMPH % 11.3 % (20.0-51.0); MEAN CELL VOLUME 89 fl (80.0-100.0); MEAN CORPUSCULAR HEMOGLOBIN 28 pg (27.0-31.0); MEAN CORPUSCULAR HGB CONC 31 g/dl (33.0-37.0); MONO # 1.2 (0.1-0.6); MONO % 9.1 % (1.7-9.3); PLATELET COUNT 322 K/mm3 (130-400); RED BLOOD COUNT 3.29 M/mm3 (4.20-5.60); REDCELL DISTRIBUTION WIDTH-CV 16.3 % (11.5-14.5); WHITE BLOOD COUNT 13.1 K/mm3 (4.8-10.8)
[2016-12-22 08:53] LABS: CALCIUM 8.6 mg/dL (8.4-10.2); CREATININE, serum 0.86 mg/dL (0.66-1.25); MAGNESIUM 1.6 mg/dL (1.6-2.3); POTASSIUM 3.7 mmol/L (3.4-5.0)
[2016-12-22 12:33] VITALS: BP 133/108; PULSE 60; TEMP 98.4
[2016-12-22 16:22] VITALS: BP 151/82; PULSE 81; TEMP 98
[2016-12-22 20:52] VITALS: BP 152/88; PULSE 74; TEMP 97.2
[2016-12-23 00:40] VITALS: BP 179/67; PULSE 73; TEMP 96.7
[2016-12-23 02:58] VITALS: BP 156/97; PULSE 87; TEMP 96
[2016-12-23 07:21] LABS: MAGNESIUM 1.7 mg/dL (1.6-2.3); POTASSIUM 3.3 mmol/L (3.4-5.0)
[2016-12-23 09:14] VITALS: BP 132/52; PULSE 89; TEMP 98
[2016-12-23 10:01] LABS: BASO # 0.1 (0.0-0.2); BASO % 0.4 % (0.0-2.0); EOS # 0.6 (0.0-0.7); EOS % 4.2 % (0-4.0); GRAN # 10.5 (1.4-6.5); GRAN % 75.5 % (42.2-75.2); LYMPH # 1.4 (1.2-3.4); MEAN CELL VOLUME 90 fl (80.0-100.0); MEAN CORPUSCULAR HGB CONC 30 g/dl (33.0-37.0); MEAN PLATELET VOLUME 9.4 fl (7.4-10.4); MONO # 1.2 (0.1-0.6); MONO % 8.7 % (1.7-9.3); PLATELET COUNT 346 K/mm3 (130-400); RED BLOOD COUNT 3.27 M/mm3 (4.20-5.60); REDCELL DISTRIBUTION WIDTH-CV 16.4 % (11.5-14.5); WHITE BLOOD COUNT 13.9 K/mm3 (4.8-10.8)
[2016-12-23 10:07] LABS: HEMATOCRIT 29.5 % (42.0-52.0); HEMOGLOBIN 8.8 g/dl (13.5-18.0)
[2016-12-23 10:08] LABS: MEAN CORPUSCULAR HEMOGLOBIN 27 pg (27.0-31.0)
[2016-12-23 11:42] VITALS: BP 120/67; PULSE 84; TEMP 97.8
[2016-12-23] MEDS ORDERED: DEMADEX10 MG PO (14:23)
[2016-12-23] MEDS ORDERED: NOVOLOG FLEX100 U/ML SQ (14:23)
[2016-12-23] MEDS ORDERED: KLOR-CON M2020 MEQ PO (14:24)
[2016-12-23] MEDS ORDERED: HEPARIN LOCK FLU5 M1 IV (14:25)
[2016-12-23] MEDS ORDERED: NS INT FLUSH 1010 ML IV (14:26)
[2016-12-23] MEDS ORDERED: DOXYCYCLINE 10100 MG PO (14:55)
[2016-12-23 15:37] VITALS: BP 120/67; PULSE 84; TEMP 97.8
[2016-12-24] MEDS ORDERED: ULORIC80 MG PO (08:56)
[2016-12-27] MEDS ORDERED: CLEOCIN HCL300 MG PO (14:16)
== END 2016-12-23 17:42 | DRG 164 ==
LOC: MEDICAL 11:46
PROVIDERS: Internal Medicine Pulmonary Disease; Nurse Practitioner Family; Physician Assistant
PROC: 0W993ZX Drainage of Right Pleural Cavity, Percutaneous Approach, Diagnostic (ICD-10-PCS; principal; 2016-12-20)
PROC: 0W993ZZ Drainage of Right Pleural Cavity, Percutaneous Approach (ICD-10-PCS; 2016-12-20)
PROC: 0B948ZZ Drainage of Right Upper Lobe Bronchus, Via Natural or Artificial Opening Endoscopic (ICD-10-PCS; 2016-12-21)
PROC: 0B968ZZ Drainage of Right Lower Lobe Bronchus, Via Natural or Artificial Opening Endoscopic (ICD-10-PCS; 2016-12-21)
PROC: 0B9B8ZZ Drainage of Left Lower Lobe Bronchus, Via Natural or Artificial Opening Endoscopic (ICD-10-PCS; 2016-12-21)
DX: J69.0 Pneumonitis due to inhalation of food and vomit (principal); N39.0 Urinary tract infection, site not specified; I13.0 Hypertensive heart and chronic kidney disease with heart failure and stage 1 through stage 4 chronic kidney disease, or unspecified chronic kidney disease; I50.32 Chronic diastolic (congestive) heart failure; Z68.41 Body mass index [BMI] 40.0-44.9, adult; J90 Pleural effusion, not elsewhere classified; Q21.1 Atrial septal defect; B96.20 Unspecified Escherichia coli [E. coli] as the cause of diseases classified elsewhere; E11.22 Type 2 diabetes mellitus with diabetic chronic kidney disease; N18.3 Chronic kidney disease, stage 3 (moderate); I48.2 Chronic atrial fibrillation; I25.10 Atherosclerotic heart disease of native coronary artery without angina pectoris; J44.9 Chronic obstructive pulmonary disease, unspecified; Z79.4 Long term (current) use of insulin; E66.01 Morbid (severe) obesity due to excess calories; E86.0 Dehydration; E87.6 Hypokalemia; E83.42 Hypomagnesemia; Z95.5 Presence of coronary angioplasty implant and graft; D64.9 Anemia, unspecified; E11.42 Type 2 diabetes mellitus with diabetic polyneuropathy; K11.20 Sialoadenitis, unspecified; Z79.01 Long term (current) use of anticoagulants; G47.33 Obstructive sleep apnea (adult) (pediatric)
CPT/HCPCS: 99223-AI; 99231-AI; 99233-AI; 99239; C1751; J1450; J1644; J1650; J1815; J2185; J2704; J3370; J3475; J3480; J7040; J7050

== ENCOUNTER 2017-01-16 09:37 | Inpatient (IN) | payer MEDICARE, BC ==
[~2017-01-16] VITALS: Ht 177.8 cm; Wt 120.3 kg
[~2017-01-16 09:37] MED LIST changes: +DEMADEX10 MG PO; +DOXYCYCLINE 10100 MG PO; +HEPARIN LOCK FLU5 M1 IV; +MILK OF MA400 MG/52; +MUCINEX 60600 MG/TA1 PO; +NOVOLOG FLEX100 U/ML SQ; +NS INT FLUSH 1010 ML IV; +TYLENOL 325MG325 MG PO
[2017-01-16 11:07] LABS: ARTERIAL BLD GAS O2 SATURATION 94.8 % (92-100); ARTERIAL BLD GAS TCO2 CT 35.8; ARTERIAL BLOOD GAS HCO3 34.1 meq/L (22-26); ARTERIAL BLOOD GAS PHT 7.41 C (7.35-7.45); ARTERIAL BLOOD GAS PO2 84.2 mmHg (80-100); ARTERIAL BLOOD GAS PO2T 84.2 (80-100); ARTERIAL BLOOD GAS pH 7.41 (7.35-7.45); OXYHEMOGLOBIN 93.8 %
[2017-01-16 11:08] LABS: ATS? YES
[2017-01-16 11:21] LABS: TROPONIN-I 0.019 ng/mL (0.000-0.034)
[2017-01-16 11:29] LABS: PROTHROMBIN TIME 22.7 SECONDS (9.7-12.8)
[2017-01-16 12:15] LABS: BASO % 0.3 % (0.0-2.0); EOS # 0.3 (0.0-0.7); EOS % 2.2 % (0-4.0); GRAN # 9.1 (1.4-6.5); GRAN % 78.2 % (42.2-75.2); LYMPH % 8.8 % (20.0-51.0); MEAN CELL VOLUME 89 fl (80.0-100.0); MEAN CORPUSCULAR HGB CONC 31 g/dl (33.0-37.0); MEAN PLATELET VOLUME 9.1 fl (7.4-10.4); MONO # 1.1 (0.1-0.6); MONO % 9.6 % (1.7-9.3); PLATELET COUNT 253 K/mm3 (130-400); RED BLOOD COUNT 3.61 M/mm3 (4.20-5.60); REDCELL DISTRIBUTION WIDTH-CV 18.1 % (11.5-14.5); WHITE BLOOD COUNT 11.6 K/mm3 (4.8-10.8)
[2017-01-16 12:19] LABS: HEMATOCRIT 32.1 % (42.0-52.0); MEAN CORPUSCULAR HEMOGLOBIN 28 pg (27.0-31.0)
[2017-01-16] MEDS ORDERED: DEMADEX 20MG20 M1 PO (12:20)
[2017-01-16 12:23] LABS: ALBUMIN 3.3 gm/dL (3.5-5.0); BILIRUBIN,TOTAL 0.7 mg/dL (0.0-1.0); CALCIUM 9.4 mg/dL (8.4-10.2); CREATININE, serum 0.87 mg/dL (0.66-1.25); POTASSIUM 3.7 mmol/L (3.4-5.0); TOTAL PROTEIN 6.8 gm/dL (6.4-8.2)
[2017-01-16] MEDS ORDERED: VITAMIN D 50,1.25 MG PO (12:31)
[2017-01-16] MEDS ORDERED: VITAMIN D 1001000 IU PO (12:31)
[2017-01-16] MEDS ORDERED: STOOL SOFTENER100 M2 PO (12:32)
[2017-01-16] MEDS ORDERED: 00186-0370-20 IH (12:33)
[2017-01-16] MEDS ORDERED: RT SPIRIVA18 MCG IH (12:33)
[2017-01-16] MEDS ORDERED: XOPENEX HF0.045 MG/A INH (12:34)
[2017-01-16] MEDS ORDERED: PLAVIX 75MG TAB75 MG PO (12:52)
[2017-01-16] MEDS ORDERED: MUCINEX 60600 MG/TA1 PO (12:54)
[2017-01-16] MEDS ORDERED: LEVEMIR100 U/ML SQ (12:59)
[2017-01-16 16:17] VITALS: BP 113/43; PULSE 81; TEMP 98.1
[2017-01-16 21:09] VITALS: BP 119/61; PULSE 55; TEMP 97.5
[2017-01-17 01:34] VITALS: BP 119/49; PULSE 92; TEMP 97.3
[2017-01-17 07:33] LABS: ADJUSTED CALCIUM 9.7 mg/dL (8.4-10.2); ALBUMIN 3.5 gm/dL (3.5-5.0); BILIRUBIN,TOTAL 0.8 mg/dL (0.0-1.0); CALCIUM 9.3 mg/dL (8.4-10.2); CREATININE, serum 0.87 mg/dL (0.66-1.25); POTASSIUM 3.7 mmol/L (3.4-5.0)
[2017-01-17 07:43] VITALS: BP 115/55; PULSE 96; TEMP 98.4
[2017-01-17 16:24] VITALS: BP 120/70; PULSE 68; TEMP 98
[2017-01-17 20:32] VITALS: BP 92/36; PULSE 89; TEMP 98.8
[2017-01-17 20:45] VITALS: BP 105/68
[2017-01-18 00:51] VITALS: BP 121/50; PULSE 93; TEMP 98.5
[2017-01-18 04:44] VITALS: BP 134/77; PULSE 64; TEMP 98.7
[2017-01-18 07:18] LABS: CALCIUM 8.8 mg/dL (8.4-10.2); CREATININE, serum 0.87 mg/dL (0.66-1.25); MAGNESIUM 1.7 mg/dL (1.6-2.3); POTASSIUM 3.2 mmol/L (3.4-5.0)
[2017-01-18 18:25] VITALS: BP 108/60; PULSE 87
[2017-01-18 20:00] VITALS: BP 114/57; PULSE 91; TEMP 98.4
[2017-01-18 23:48] VITALS: BP 123/65; PULSE 65; TEMP 98.7
[2017-01-19 03:17] VITALS: BP 134/78; PULSE 84; TEMP 98.5
[2017-01-19 07:42] VITALS: BP 105/64; PULSE 79; TEMP 97.9
[2017-01-19 08:44] LABS: CALCIUM 8.7 mg/dL (8.4-10.2); CREATININE, serum 0.95 mg/dL (0.66-1.25); POTASSIUM 3.3 mmol/L (3.4-5.0)
[2017-01-19 09:30] VITALS: BP 112/68; PULSE 89; TEMP 97.8
[2017-01-19 09:45] VITALS: BP 115/72; PULSE 77; TEMP 97.8
[2017-01-19 10:00] VITALS: BP 124/65; PULSE 89; TEMP 97.8
[2017-01-19 10:13] VITALS: BP 110/74; PULSE 82; TEMP 98.3
[2017-01-19] MEDS ORDERED: PRINIVIL5 MG PO (16:38)
[2017-01-19] MEDS ORDERED: TOPROL XL 25MG25 MG PO (16:38)
== END 2017-01-19 17:10 | disposition home health service (06) | DRG 981 ==
LOC: COL.ER 09:37 → MEDICAL 12:35
PROVIDERS: Emergency Medicine; Internal Medicine; Internal Medicine Cardiovascular Disease; Internal Medicine Pulmonary Disease
PROC: 0W993ZZ Drainage of Right Pleural Cavity, Percutaneous Approach (ICD-10-PCS; 2017-01-18)
PROC: 0B9B8ZZ Drainage of Left Lower Lobe Bronchus, Via Natural or Artificial Opening Endoscopic (ICD-10-PCS; 2017-01-19)
PROC: 0BCB8ZZ Extirpation of Matter from Left Lower Lobe Bronchus, Via Natural or Artificial Opening Endoscopic (ICD-10-PCS; 2017-01-19)
PROC: 0BC68ZZ Extirpation of Matter from Right Lower Lobe Bronchus, Via Natural or Artificial Opening Endoscopic (ICD-10-PCS; 2017-01-19)
PROC: 0B968ZZ Drainage of Right Lower Lobe Bronchus, Via Natural or Artificial Opening Endoscopic (ICD-10-PCS; principal; 2017-01-19 09:00)
DX: I13.0 Hypertensive heart and chronic kidney disease with heart failure and stage 1 through stage 4 chronic kidney disease, or unspecified chronic kidney disease (principal); I50.33 Acute on chronic diastolic (congestive) heart failure; J90 Pleural effusion, not elsewhere classified; Q21.1 Atrial septal defect; J98.11 Atelectasis; N18.3 Chronic kidney disease, stage 3 (moderate); I25.10 Atherosclerotic heart disease of native coronary artery without angina pectoris; I48.0 Paroxysmal atrial fibrillation; E66.01 Morbid (severe) obesity due to excess calories; E87.6 Hypokalemia; Z95.5 Presence of coronary angioplasty implant and graft; J44.9 Chronic obstructive pulmonary disease, unspecified; E11.21 Type 2 diabetes mellitus with diabetic nephropathy; E11.42 Type 2 diabetes mellitus with diabetic polyneuropathy; Z79.4 Long term (current) use of insulin; E11.65 Type 2 diabetes mellitus with hyperglycemia
CPT/HCPCS: 99223-AI; 99232-AI; 99233-AI; 99239; A4315; J1815; J1940; J2704; J7030

== ENCOUNTER 2017-02-04 11:21 | Outpatient (CLI) | payer MEDICARE, BC ==
[~2017-02-04 11:21] MED LIST changes: +LEVEMIR100 U/ML SQ; +STOOL SOFTENER100 M2 PO; +TOPROL XL 25MG25 MG PO; +VITAMIN D 50,1.25 MG PO; +XOPENEX HF0.045 MG/A INH
[2017-02-04] MEDS ORDERED: PROVENTIL0.09 MG/A1 IH (12:15)
[2017-02-04] MEDS ORDERED: IPRATROPIUM BROM3 M1 IH (12:15)
[2017-02-04 13:54] VITALS: BP 137/66; PULSE 70
[2017-02-04 14:09] VITALS: BP 131/74; PULSE 92
[2017-02-04 14:24] VITALS: BP 126/86; PULSE 87
[2017-02-04 14:26] LABS: PLEURAL FLUID - PMN 12.5 % (0-25)
[2017-02-04 14:32] LABS: PLEURAL FLUID RIGHT SIDE
[2017-02-04 14:33] LABS: PLEURAL FLUID APPEARANCE HAZY; PLEURAL FLUID COLOR YELLOW
[2017-02-04 14:39] VITALS: BP 116/67; PULSE 94
[2017-02-04 14:44] LABS: GLUCOSE,PLEURAL FLUID 179 mg/dL
[2017-02-04 14:54] VITALS: BP 119/76; PULSE 86
[2017-02-04 16:24] VITALS: BP 93/55; PULSE 93
== END 2017-02-04 15:45 | disposition home or self-care (01) ==
LOC: SDCO 11:21
PROVIDERS: Internal Medicine Pulmonary Disease
DX: J90 Pleural effusion, not elsewhere classified (principal); R06.02 Shortness of breath; E11.9 Type 2 diabetes mellitus without complications; Z79.84 Long term (current) use of oral hypoglycemic drugs

== ENCOUNTER 2017-03-19 09:41 | Emergency (ER) | payer MEDICARE, BC ==
[~2017-03-19] VITALS: Ht 177.8 cm; Wt 127.3 kg
[~2017-03-19 09:41] MED LIST changes: +IPRATROPIUM BROM3 M1 IH; +PROVENTIL0.09 MG/A1 IH
[2017-03-19 09:52] VITALS: TEMP 97.7
[2017-03-19 11:07] LABS: BASO # 0.1 (0.0-0.2); BASO % 0.4 % (0.0-2.0); EOS # 0.7 (0.0-0.7); EOS % 5.1 % (0-4.0); GRAN # 9.8 (1.4-6.5); GRAN % 75.6 % (42.2-75.2); LYMPH # 1.3 (1.2-3.4); LYMPH % 9.8 % (20.0-51.0); MEAN CELL VOLUME 88 fl (80.0-100.0); MEAN CORPUSCULAR HGB CONC 31 g/dl (33.0-37.0); MEAN PLATELET VOLUME 9.5 fl (7.4-10.4); MONO # 1.1 (0.1-0.6); MONO % 8.5 % (1.7-9.3); PLATELET COUNT 244 K/mm3 (130-400); RED BLOOD COUNT 3.92 M/mm3 (4.20-5.60); REDCELL DISTRIBUTION WIDTH-CV 17.9 % (11.5-14.5)
[2017-03-19 11:10] LABS: HEMATOCRIT 34.6 % (42.0-52.0); HEMOGLOBIN 10.8 g/dl (13.5-18.0); MEAN CORPUSCULAR HEMOGLOBIN 28 pg (27.0-31.0)
[2017-03-19 11:12] LABS: ADJUSTED CALCIUM 9.6 mg/dL (8.4-10.2); ALBUMIN 3.6 gm/dL (3.5-5.0); BILIRUBIN,TOTAL 0.7 mg/dL (0.0-1.0); CALCIUM 9.3 mg/dL (8.4-10.2); CREATININE, serum 0.9 mg/dL (0.66-1.25); TOTAL PROTEIN 7.2 gm/dL (6.4-8.2)
[2017-03-19 11:21] LABS: INR 2.1 (0.8-3.0); PROTHROMBIN TIME 23.5 SECONDS (9.7-12.8)
[2017-03-19 11:25] LABS: TROPONIN-I 0.024 ng/mL (0.000-0.034)
[2017-03-19 11:53] LABS: ARTERIAL BLD GAS O2 SATURATION 96.3 % (92-100); ARTERIAL BLD GAS TCO2 CT 33.5; ARTERIAL BLOOD GAS BASE EXCESS 6.9 (-2-2); ARTERIAL BLOOD GAS HCO3 32.1 meq/L (22-26); ARTERIAL BLOOD GAS PO2 92.7 mmHg (80-100); ARTERIAL BLOOD GAS pH 7.44 (7.35-7.45); OXYHEMOGLOBIN 95.5 %
[2017-03-19 11:54] LABS: ALLEN TEST YES; ALLENS TEST RESULT PASS; ATS? YES
[2017-03-19 12:13] LABS: PH 5 (5-8); SQUAMOUS EPITHELIAL 0-2 /hpf; URINE APPEARANCE Clear; URINE BACTERIA Rare /hpf; URINE BILIRUBIN Negative (NEGATIVE); URINE BLOOD Negative (NEGATIVE); URINE COLOR Yellow; URINE GLUCOSE Negative (NEGATIVE); URINE KETONE Negative (NEGATIVE); URINE RBC 0-2 /hpf; URINE UROBILINOGEN Negative (NEGATIVE)
[2017-03-19 14:02] VITALS: BP 140/64; PULSE 86
== END 2017-03-19 14:00 | disposition home or self-care (01) ==
LOC: COL.ER 09:41
PROVIDERS: Family Medicine
DX: J90 Pleural effusion, not elsewhere classified (principal); I50.9 Heart failure, unspecified; Z79.01 Long term (current) use of anticoagulants; Z87.891 Personal history of nicotine dependence; Z99.81 Dependence on supplemental oxygen

== ENCOUNTER 2017-03-24 07:10 | Outpatient (CLI) | payer MEDICARE, BC ==
[~2017-03-24] VITALS: Ht 177.8 cm; Wt 131.9 kg
[2017-03-24 08:18] VITALS: BP 137/72; PULSE 78; TEMP 98.1
[2017-03-24] MEDS ORDERED: PROAIR HFA0.09 MG/AC IH (08:21)
[2017-03-24] MEDS ORDERED: NOVOLOG FLEX100 U/ML SQ (08:30)
[2017-03-24] MEDS ORDERED: PROBIOTIC FORMU1 CAP PO (08:32)
[2017-03-24] MEDS ORDERED: XOPENEX HF0.045 MG/A IH (08:33)
[2017-03-24] MEDS ORDERED: K-DUR20 MEQ PO (08:34)
[2017-03-24] MEDS ORDERED: MIRALAX PA17 GM/Dose PO (08:35)
[2017-03-24 10:19] VITALS: BP 117/60; PULSE 88; TEMP 97.5
[2017-03-24 10:30] VITALS: BP 118/83; PULSE 96
[2017-03-24 11:32] VITALS: PULSE 90
== END 2017-03-24 10:50 | disposition home or self-care (01) ==
LOC: SDCO 07:10
DX: J90 Pleural effusion, not elsewhere classified (principal); R06.02 Shortness of breath; D68.9 Coagulation defect, unspecified
CPT/HCPCS: 19804

== ENCOUNTER 2017-04-07 07:42 | Outpatient (CLI) | payer MEDICARE, BC ==
[~2017-04-07] VITALS: Ht 177.8 cm; Wt 131.8 kg
[~2017-04-07 07:42] MED LIST changes: +K-DUR20 MEQ PO; +PROBIOTIC FORMU1 CAP PO; +XOPENEX HF0.045 MG/A IH
[2017-04-07 09:10] VITALS: BP 129/86; PULSE 89; TEMP 97.9
[2017-04-07] MEDS ORDERED: NYAMYC100000 U/G TP (09:33)
[2017-04-07] MEDS ORDERED: PRINIVIL5 MG PO (09:34)
[2017-04-07] MEDS ORDERED: TOPROL XL 25MG25 MG PO (09:35)
[2017-04-07] MEDS ORDERED: PRILOSEC 20MG20 MG PO (09:36)
[2017-04-07] MEDS ORDERED: LOPRESSOR 225 MG/TAB PO (09:36)
[2017-04-07] MEDS ORDERED: MUCINEX D 12001 TER PO (09:37)
[2017-04-07] MEDS ORDERED: AZO-STANDARD95 MG PO ×2 (09:37→14:22)
[2017-04-07] MEDS ORDERED: [UNRECOGNIZED DRUG - OTHER] PO (09:38)
[2017-04-07 10:36] VITALS: BP 114/62; PULSE 85
[2017-04-07] MEDS ORDERED: GAS RELIEF EXT125 MG PO (14:22)
[2017-04-07] MEDS ORDERED: MUCINEX DM 30 M1 TE1 (14:23)
[2017-04-07] MEDS ORDERED: 00186-0370-20 IH (14:57)
== END 2017-04-07 12:20 | disposition home or self-care (01) ==
LOC: SDCO 07:42
DX: J90 Pleural effusion, not elsewhere classified (principal); R06.02 Shortness of breath

== ENCOUNTER 2017-04-07 12:26 | Inpatient (IN) | payer MEDICARE, BC ==
[~2017-04-07] VITALS: Ht 177.8 cm; Wt 112.1 kg
[~2017-04-07 12:26] MED LIST changes: +AZO-STANDARD95 MG PO; +LOPRESSOR 225 MG/TAB PO; +MUCINEX D 12001 TER PO; +NYAMYC100000 U/G TP; +[UNRECOGNIZED DRUG - OTHER] PO
[2017-04-07 13:03] VITALS: BP 143/74; PULSE 92
[2017-04-07 13:29] LABS: BASO # 0.1 (0.0-0.2); BASO % 0.4 % (0.0-2.0); EOS # 0.2 (0.0-0.7); GRAN # 9.2 (1.4-6.5); GRAN % 76.7 % (42.2-75.2); LYMPH # 1.2 (1.2-3.4); MEAN CELL VOLUME 89 fl (80.0-100.0); MEAN CORPUSCULAR HGB CONC 31 g/dl (33.0-37.0); MEAN PLATELET VOLUME 8.6 fl (7.4-10.4); MONO # 1.3 (0.1-0.6); MONO % 10.4 % (1.7-9.3); PLATELET COUNT 304 K/mm3 (130-400); RED BLOOD COUNT 3.85 M/mm3 (4.20-5.60); REDCELL DISTRIBUTION WIDTH-CV 16.7 % (11.5-14.5)
[2017-04-07 13:31] LABS: HEMATOCRIT 34.4 % (42.0-52.0); HEMOGLOBIN 10.6 g/dl (13.5-18.0); MEAN CORPUSCULAR HEMOGLOBIN 28 pg (27.0-31.0)
[2017-04-07 13:45] LABS: ADJUSTED CALCIUM 9.8 mg/dL (8.4-10.2); ALBUMIN 3.7 gm/dL (3.5-5.0); BILIRUBIN,TOTAL 0.7 mg/dL (0.0-1.0); CALCIUM 9.6 mg/dL (8.4-10.2); CREATININE, serum 0.87 mg/dL (0.66-1.25); POTASSIUM 4.1 mmol/L (3.4-5.0); TOTAL PROTEIN 7.5 gm/dL (6.4-8.2)
[2017-04-07] MEDS ORDERED: AZO-STANDARD95 MG PO (14:22)
[2017-04-07] MEDS ORDERED: GAS RELIEF EXT125 MG PO (14:22)
[2017-04-07] MEDS ORDERED: MUCINEX DM 30 M1 TE1 (14:23)
[2017-04-07 14:38] LABS: ARTERIAL BLD GAS O2 SATURATION 92.5 % (92-100); ARTERIAL BLD GAS TCO2 CT 33.6; ARTERIAL BLOOD GAS BASE EXCESS 6.5 (-2-2); ARTERIAL BLOOD GAS PO2 72.5 mmHg (80-100); ARTERIAL BLOOD GAS pH 7.42 (7.35-7.45); ATS? YES; OXYHEMOGLOBIN 91.6 %
[2017-04-07] MEDS ORDERED: 00186-0370-20 IH (14:57)
[2017-04-07 15:31] LABS: PH 7 (5-8); SQUAMOUS EPITHELIAL 0-2 /hpf; URINE BACTERIA None Seen /hpf; URINE BILIRUBIN Negative (NEGATIVE); URINE BLOOD Negative (NEGATIVE); URINE COLOR Yellow; URINE GLUCOSE Negative (NEGATIVE); URINE KETONE Trace (NEGATIVE); URINE RBC 0-2 /hpf
[2017-04-07 15:35] LABS: URINE WBC 20-50 /hpf
[2017-04-07 15:36] LABS: URINE APPEARANCE Hazy
[2017-04-07 17:15] VITALS: BP 120/81; PULSE 75; TEMP 95.8
[2017-04-07 20:27] VITALS: BP 134/69; PULSE 91; TEMP 97.7
[2017-04-08] VITALS (14 sets, daily range): BP systolic 83–144; BP diastolic 37–68; PULSE 50–87; TEMP 97.9–98.3
[2017-04-08 07:50] LABS: BASO % 0.4 % (0.0-2.0); EOS # 0.1 (0.0-0.7); EOS % 1.3 % (0-4.0); GRAN # 8.5 (1.4-6.5); GRAN % 76.4 % (42.2-75.2); LYMPH % 9.2 % (20.0-51.0); MEAN CELL VOLUME 89 fl (80.0-100.0); MEAN CORPUSCULAR HGB CONC 31 g/dl (33.0-37.0); MEAN PLATELET VOLUME 9.5 fl (7.4-10.4); MONO # 1.4 (0.1-0.6); MONO % 12.1 % (1.7-9.3); PLATELET COUNT 286 K/mm3 (130-400); RED BLOOD COUNT 3.56 M/mm3 (4.20-5.60); REDCELL DISTRIBUTION WIDTH-CV 16.5 % (11.5-14.5); WHITE BLOOD COUNT 11.1 K/mm3 (4.8-10.8)
[2017-04-08 07:54] LABS: HEMATOCRIT 31.8 % (42.0-52.0); HEMOGLOBIN 9.8 g/dl (13.5-18.0); MEAN CORPUSCULAR HEMOGLOBIN 28 pg (27.0-31.0)
[2017-04-08 08:12] LABS: CALCIUM 9.3 mg/dL (8.4-10.2); CREATININE, serum 0.82 mg/dL (0.66-1.25)
[2017-04-08 08:25] LABS: POTASSIUM 3.7 mmol/L (3.4-5.0)
[2017-04-08 10:34] LABS: INR 1.7 (0.8-3.0); PROTHROMBIN TIME 19.2 SECONDS (9.7-12.8)
[2017-04-09] VITALS (7 sets, daily range): BP systolic 63–107; BP diastolic 38–64; PULSE 70–112; TEMP 97.9–980.7
[2017-04-09 08:51] LABS: BASO % 0.2 % (0.0-2.0); EOS # 0.1 (0.0-0.7); EOS % 0.7 % (0-4.0); GRAN # 10.2 (1.4-6.5); GRAN % 78.8 % (42.2-75.2); LYMPH # 1.2 (1.2-3.4); LYMPH % 9.4 % (20.0-51.0); MEAN CELL VOLUME 90 fl (80.0-100.0); MEAN CORPUSCULAR HGB CONC 30 g/dl (33.0-37.0); MEAN PLATELET VOLUME 9.3 fl (7.4-10.4); MONO # 1.3 (0.1-0.6); MONO % 10.2 % (1.7-9.3); PLATELET COUNT 320 K/mm3 (130-400); RED BLOOD COUNT 3.55 M/mm3 (4.20-5.60)
[2017-04-09 08:52] LABS: HEMATOCRIT 31.9 % (42.0-52.0); HEMOGLOBIN 9.6 g/dl (13.5-18.0); MEAN CORPUSCULAR HEMOGLOBIN 27 pg (27.0-31.0)
[2017-04-09 09:05] LABS: CALCIUM 8.8 mg/dL (8.4-10.2); CREATININE, serum 1.32 mg/dL (0.66-1.25); POTASSIUM 3.5 mmol/L (3.4-5.0)
[2017-04-10] VITALS (8 sets, daily range): BP systolic 86–112; BP diastolic 44–58; PULSE 65–91; TEMP 97.9–99.4
[2017-04-10 07:54] LABS: BASO % 0.3 % (0.0-2.0); EOS # 0.2 (0.0-0.7); EOS % 1.8 % (0-4.0); GRAN # 9.7 (1.4-6.5); GRAN % 76.9 % (42.2-75.2); LYMPH # 1.2 (1.2-3.4); LYMPH % 9.8 % (20.0-51.0); MEAN CELL VOLUME 89 fl (80.0-100.0); MEAN CORPUSCULAR HGB CONC 31 g/dl (33.0-37.0); MEAN PLATELET VOLUME 9.2 fl (7.4-10.4); MONO # 1.3 (0.1-0.6); MONO % 10.4 % (1.7-9.3); PLATELET COUNT 307 K/mm3 (130-400); RED BLOOD COUNT 3.49 M/mm3 (4.20-5.60); WHITE BLOOD COUNT 12.6 K/mm3 (4.8-10.8)
[2017-04-10 07:55] LABS: HEMATOCRIT 31.2 % (42.0-52.0); HEMOGLOBIN 9.6 g/dl (13.5-18.0); MEAN CORPUSCULAR HEMOGLOBIN 28 pg (27.0-31.0)
[2017-04-10 08:17] LABS: ADJUSTED CALCIUM 9.3 mg/dL (8.4-10.2); ALBUMIN 3.1 gm/dL (3.5-5.0); BILIRUBIN,TOTAL 0.6 mg/dL (0.0-1.0); CALCIUM 8.6 mg/dL (8.4-10.2); CREATININE, serum 1.39 mg/dL (0.66-1.25); POTASSIUM 3.3 mmol/L (3.4-5.0); TOTAL PROTEIN 6.8 gm/dL (6.4-8.2)
[2017-04-11 01:50] VITALS: BP 134/57; PULSE 81; TEMP 98.8
[2017-04-11 05:51] VITALS: BP 136/65; PULSE 92; TEMP 98.8
[2017-04-11 07:49] LABS: BASO % 0.3 % (0.0-2.0); EOS # 0.3 (0.0-0.7); EOS % 2.3 % (0-4.0); GRAN % 73.8 % (42.2-75.2); LYMPH # 1.2 (1.2-3.4); LYMPH % 11.4 % (20.0-51.0); MEAN CELL VOLUME 89 fl (80.0-100.0); MEAN CORPUSCULAR HGB CONC 31 g/dl (33.0-37.0); MEAN PLATELET VOLUME 9.2 fl (7.4-10.4); MONO # 1.2 (0.1-0.6); MONO % 11.2 % (1.7-9.3); PLATELET COUNT 278 K/mm3 (130-400); RED BLOOD COUNT 3.43 M/mm3 (4.20-5.60); REDCELL DISTRIBUTION WIDTH-CV 16.9 % (11.5-14.5); WHITE BLOOD COUNT 10.9 K/mm3 (4.8-10.8)
[2017-04-11 07:55] LABS: HEMATOCRIT 30.6 % (42.0-52.0); HEMOGLOBIN 9.4 g/dl (13.5-18.0); MEAN CORPUSCULAR HEMOGLOBIN 27 pg (27.0-31.0)
[2017-04-11 08:06] LABS: ADJUSTED CALCIUM 9.7 mg/dL (8.4-10.2); ALBUMIN 3.1 gm/dL (3.5-5.0); BILIRUBIN,TOTAL 0.5 mg/dL (0.0-1.0); CREATININE, serum 1.37 mg/dL (0.66-1.25); POTASSIUM 3.6 mmol/L (3.4-5.0); TOTAL PROTEIN 6.6 gm/dL (6.4-8.2)
[2017-04-11 09:54] VITALS: BP 109/69; PULSE 78; TEMP 98.6
[2017-04-11] MEDS ORDERED: DOXYCYCLINE HY100 MG PO (13:10)
== END 2017-04-11 17:23 | disposition home health service (06) | DRG 190 ==
LOC: SURG 12:26
PROVIDERS: Family Medicine; Nurse Practitioner Family; Radiology Diagnostic Radiology
PROC: 0W993ZZ Drainage of Right Pleural Cavity, Percutaneous Approach (ICD-10-PCS; principal; 2017-04-08)
DX: J44.0 Chronic obstructive pulmonary disease with (acute) lower respiratory infection (principal); J15.212 Pneumonia due to Methicillin resistant Staphylococcus aureus; J90 Pleural effusion, not elsewhere classified; I13.0 Hypertensive heart and chronic kidney disease with heart failure and stage 1 through stage 4 chronic kidney disease, or unspecified chronic kidney disease; Q21.1 Atrial septal defect; E87.4 Mixed disorder of acid-base balance; I50.22 Chronic systolic (congestive) heart failure; J44.1 Chronic obstructive pulmonary disease with (acute) exacerbation; I48.2 Chronic atrial fibrillation; I25.10 Atherosclerotic heart disease of native coronary artery without angina pectoris; Z95.5 Presence of coronary angioplasty implant and graft; E11.22 Type 2 diabetes mellitus with diabetic chronic kidney disease; N18.3 Chronic kidney disease, stage 3 (moderate); Z79.4 Long term (current) use of insulin; E11.42 Type 2 diabetes mellitus with diabetic polyneuropathy; Z79.01 Long term (current) use of anticoagulants; G47.33 Obstructive sleep apnea (adult) (pediatric); E66.01 Morbid (severe) obesity due to excess calories; Z68.36 Body mass index [BMI] 36.0-36.9, adult
CPT/HCPCS: 99223-AI; 99232-AI; 99233-AI; 99239; A9284; A9502; G0378; G8987-GO; G8988-GO; J1815; J1940; J1956; J2785; J7040

== ENCOUNTER 2017-04-15 18:35 | Inpatient (IN) | payer MEDICARE, BC ==
[2017-04-15] VITALS (67 sets, daily range): BP systolic 139; BP diastolic 79; PULSE 106; TEMP 98.1; O2SAT 76–100
[~2017-04-15] VITALS: Ht 177.8 cm; Wt 117.3 kg
[~2017-04-15 18:35] MED LIST changes: +DOXYCYCLINE HY100 MG PO; +GAS RELIEF EXT125 MG PO; +MUCINEX DM 30 M1 TE1
[2017-04-15 19:33] LABS: BASO # 0.1 (0.0-0.2); BASO % 0.5 % (0.0-2.0); EOS # 0.2 (0.0-0.7); EOS % 1.1 % (0-4.0); GRAN # 12.4 (1.4-6.5); GRAN % 81.1 % (42.2-75.2); LYMPH % 6.8 % (20.0-51.0); MEAN CELL VOLUME 88 fl (80.0-100.0); MEAN CORPUSCULAR HGB CONC 31 g/dl (33.0-37.0); MEAN PLATELET VOLUME 9.1 fl (7.4-10.4); MONO # 1.5 (0.1-0.6); MONO % 9.6 % (1.7-9.3); PLATELET COUNT 333 K/mm3 (130-400); RED BLOOD COUNT 3.83 M/mm3 (4.20-5.60); WHITE BLOOD COUNT 15.2 K/mm3 (4.8-10.8)
[2017-04-15 19:35] LABS: HEMATOCRIT 33.6 % (42.0-52.0); HEMOGLOBIN 10.5 g/dl (13.5-18.0); MEAN CORPUSCULAR HEMOGLOBIN 27 pg (27.0-31.0)
[2017-04-15 19:47] LABS: ADJUSTED CALCIUM 10.1 mg/dL (8.4-10.2); ALBUMIN 3.6 gm/dL (3.5-5.0); BILIRUBIN,TOTAL 0.5 mg/dL (0.0-1.0); C-REACTIVE PROTEIN 8.3 mg/dL (0.0-0.9); CALCIUM 9.8 mg/dL (8.4-10.2); CREATININE, serum 0.97 mg/dL (0.66-1.25); POTASSIUM 3.8 mmol/L (3.4-5.0); TOTAL PROTEIN 7.5 gm/dL (6.4-8.2)
[2017-04-15 19:57] LABS: TROPONIN-I 0.022 ng/mL (0.000-0.034)
[2017-04-15 21:43] LABS: ARTERIAL BLD GAS O2 SATURATION 95.2 % (92-100); ARTERIAL BLD GAS TCO2 CT 45.3; ARTERIAL BLOOD GAS BASE EXCESS 16.1 (-2-2); ARTERIAL BLOOD GAS HCO3 43.2 meq/L (22-26); ARTERIAL BLOOD GAS PHT 7.42 C (7.35-7.45); ARTERIAL BLOOD GAS PO2 82.4 mmHg (80-100); ARTERIAL BLOOD GAS PO2T 82.4 (80-100); ARTERIAL BLOOD GAS pH 7.42 (7.35-7.45); OXYHEMOGLOBIN 94.5 %
[2017-04-15 21:48] LABS: ALLEN TEST YES; ALLENS TEST RESULT PASS; ATS? YES
[2017-04-15] MEDS ORDERED: DEMADEX 20MG20 M1 PO (22:01)
[2017-04-15 23:43] LABS: BASO % 0.2 % (0.0-2.0); EOS # 0.1 (0.0-0.7); EOS % 0.7 % (0-4.0); GRAN # 11.9 (1.4-6.5); GRAN % 91.2 % (42.2-75.2); HEMATOCRIT 31.9 % (42.0-52.0); HEMOGLOBIN 9.9 g/dl (13.5-18.0); LYMPH # 0.5 (1.2-3.4); LYMPH % 3.6 % (20.0-51.0); MEAN CELL VOLUME 87 fl (80.0-100.0); MEAN CORPUSCULAR HEMOGLOBIN 27 pg (27.0-31.0); MEAN CORPUSCULAR HGB CONC 31 g/dl (33.0-37.0); MEAN PLATELET VOLUME 8.9 fl (7.4-10.4); MONO # 0.5 (0.1-0.6); MONO % 3.5 % (1.7-9.3); PLATELET COUNT 284 K/mm3 (130-400); RED BLOOD COUNT 3.65 M/mm3 (4.20-5.60); REDCELL DISTRIBUTION WIDTH-CV 16.1 % (11.5-14.5)
[2017-04-16] VITALS (1079 sets, daily range): BP systolic 96–141; BP diastolic 66–92; PULSE 78–95; TEMP 97.6–98.7; O2SAT 71–100
[2017-04-16 05:54] LABS: ARTERIAL BLD GAS O2 SATURATION 93.2 % (92-100); ARTERIAL BLOOD GAS BASE EXCESS 13.3 (-2-2); ARTERIAL BLOOD GAS HCO3 40.9 meq/L (22-26); ARTERIAL BLOOD GAS PHT 7.38 C (7.35-7.45); ARTERIAL BLOOD GAS PO2 74.9 mmHg (80-100); ARTERIAL BLOOD GAS PO2T 74.9 (80-100); ARTERIAL BLOOD GAS pH 7.38 (7.35-7.45); OXYHEMOGLOBIN 92.3 %
[2017-04-16 05:56] LABS: ALLEN TEST YES; ALLENS TEST RESULT PASS; ATS? YES
[2017-04-16 06:34] LABS: PH 5 (5-8); SQUAMOUS EPITHELIAL None Seen /hpf; URINE APPEARANCE Clear; URINE BACTERIA None Seen /hpf; URINE BILIRUBIN Negative (NEGATIVE); URINE BLOOD Negative (NEGATIVE); URINE COLOR Yellow; URINE GLUCOSE Negative (NEGATIVE); URINE KETONE Trace (NEGATIVE); URINE RBC 0-2 /hpf; URINE UROBILINOGEN Negative (NEGATIVE); URINE WBC 0-2 /hpf
[2017-04-16 07:41] LABS: ADJUSTED CALCIUM 9.8 mg/dL (8.4-10.2); ALANINE AMINOTRANSFERASE 24 U/L (21-72); ALBUMIN 3.3 gm/dL (3.5-5.0); ALKALINE PHOSPHATASE 95 U/L (50-136); BILIRUBIN,TOTAL 0.4 mg/dL (0.0-1.0); BLOOD UREA NITROGEN 30 mg/dL (9-20); CALCIUM 9.2 mg/dL (8.4-10.2); CREATININE, serum 0.89 mg/dL (0.66-1.25); GLUCOSE 235 mg/dL (74-106); POTASSIUM 3.8 mmol/L (3.4-5.0); SODIUM 136 mmol/L (137-145); TOTAL PROTEIN 7.1 gm/dL (6.4-8.2)
[2017-04-16 07:49] LABS: CARBON DIOXIDE 40 mmol/L (22-30); CHLORIDE 89 mmol/L (98-107)
[2017-04-16 12:23] LABS: ARTERIAL BLD GAS O2 SATURATION 93.7 % (92-100); ARTERIAL BLD GAS TCO2 CT 39.2; ARTERIAL BLOOD GAS BASE EXCESS 11.3 (-2-2); ARTERIAL BLOOD GAS HCO3 37.5 meq/L (22-26); ARTERIAL BLOOD GAS PO2 73.3 mmHg (80-100); ARTERIAL BLOOD GAS pH 7.43 (7.35-7.45); OXYHEMOGLOBIN 92.9 %
[2017-04-16 12:26] LABS: ALLEN TEST YES; ALLENS TEST RESULT PASS; ATS? YES
[2017-04-16 16:50] LABS: PARTIAL THROMBOPLASTIN TIME 30.7 SECONDS (26.0-37.0)
[2017-04-17] VITALS (594 sets, daily range): BP systolic 104–133; BP diastolic 35–90; PULSE 80–98; TEMP 97.4–98.7; O2SAT 80–100
[2017-04-17 01:32] LABS: INR 1.2 (0.8-3.0)
[2017-04-17 01:34] LABS: PARTIAL THROMBOPLASTIN TIME 77.9 SECONDS (26.0-37.0)
[2017-04-17 05:45] LABS: ADD PATHOLOGY DIFF REVIEW NO
[2017-04-17 05:51] LABS: MEAN CELL VOLUME 87 fl (80.0-100.0); MEAN CORPUSCULAR HGB CONC 31 g/dl (33.0-37.0); MEAN PLATELET VOLUME 9.2 fl (7.4-10.4); PLATELET COUNT 331 K/mm3 (130-400)
[2017-04-17 05:53] LABS: HEMOGLOBIN 9.2 g/dl (13.5-18.0); MEAN CORPUSCULAR HEMOGLOBIN 27 pg (27.0-31.0); WHITE BLOOD COUNT 21.1 K/mm3 (4.8-10.8)
[2017-04-17 05:54] LABS: HEMATOCRIT 29.5 % (42.0-52.0)
[2017-04-17 06:04] LABS: BAND 22 % (0-10); NEUTROPHILS 74 % (42.0-75.2); TOTAL CELLS COUNTED 100
[2017-04-17 06:20] LABS: CALCIUM 9.3 mg/dL (8.4-10.2); CREATININE, serum 0.84 mg/dL (0.66-1.25); POTASSIUM 3.3 mmol/L (3.4-5.0)
[2017-04-18] VITALS (8 sets, daily range): BP systolic 92–141; BP diastolic 31–76; PULSE 78–88; TEMP 97–98.6
[2017-04-18 07:29] LABS: MEAN CELL VOLUME 87 fl (80.0-100.0); MEAN CORPUSCULAR HGB CONC 31 g/dl (33.0-37.0); MEAN PLATELET VOLUME 9.5 fl (7.4-10.4); PLATELET COUNT 369 K/mm3 (130-400); RED BLOOD COUNT 3.37 M/mm3 (4.20-5.60); REDCELL DISTRIBUTION WIDTH-CV 16.4 % (11.5-14.5)
[2017-04-18 07:34] LABS: HEMATOCRIT 29.4 % (42.0-52.0); MEAN CORPUSCULAR HEMOGLOBIN 27 pg (27.0-31.0); WHITE BLOOD COUNT 20.5 K/mm3 (4.8-10.8)
[2017-04-18 07:47] LABS: CALCIUM 9.1 mg/dL (8.4-10.2); CREATININE, serum 1.08 mg/dL (0.66-1.25); MAGNESIUM 2.1 mg/dL (1.6-2.3); POTASSIUM 3.9 mmol/L (3.4-5.0)
[2017-04-19 00:27] VITALS: BP 138/52; PULSE 77; TEMP 98.3
[2017-04-19 06:22] VITALS: BP 134/94; PULSE 72; TEMP 98.3
[2017-04-19 07:24] LABS: MEAN CELL VOLUME 88 fl (80.0-100.0); MEAN CORPUSCULAR HGB CONC 31 g/dl (33.0-37.0); MEAN PLATELET VOLUME 8.9 fl (7.4-10.4); PLATELET COUNT 332 K/mm3 (130-400); RED BLOOD COUNT 3.28 M/mm3 (4.20-5.60); REDCELL DISTRIBUTION WIDTH-CV 16.3 % (11.5-14.5); WHITE BLOOD COUNT 17.9 K/mm3 (4.8-10.8)
[2017-04-19 07:25] LABS: HEMATOCRIT 28.8 % (42.0-52.0); HEMOGLOBIN 8.8 g/dl (13.5-18.0); MEAN CORPUSCULAR HEMOGLOBIN 27 pg (27.0-31.0)
[2017-04-19 07:26] LABS: ADD PATHOLOGY DIFF REVIEW NO
[2017-04-19 07:37] LABS: CALCIUM 9.1 mg/dL (8.4-10.2); CREATININE, serum 1.28 mg/dL (0.66-1.25); POTASSIUM 4.2 mmol/L (3.4-5.0)
[2017-04-19 08:03] VITALS: BP 109/50; PULSE 79; TEMP 98.2
[2017-04-19 08:23] LABS: BAND 9 % (0-10); NEUTROPHILS 88 % (42.0-75.2); PLATELET ESTIMATE NORMAL (NORMAL); TOTAL CELLS COUNTED 100
[2017-04-19 12:17] VITALS: BP 115/65; PULSE 91; TEMP 98.2
[2017-04-19 15:42] VITALS: BP 133/61; PULSE 89; TEMP 98.2
[2017-04-19 20:23] VITALS: BP 132/79; PULSE 87; TEMP 98.1
[2017-04-20 00:11] VITALS: BP 140/85; PULSE 83; TEMP 97.9
[2017-04-20 04:02] VITALS: BP 125/76; PULSE 83; TEMP 97.8
[2017-04-20 07:15] LABS: MEAN CELL VOLUME 88 fl (80.0-100.0); MEAN CORPUSCULAR HGB CONC 31 g/dl (33.0-37.0); MEAN PLATELET VOLUME 9.3 fl (7.4-10.4); PLATELET COUNT 344 K/mm3 (130-400); RED BLOOD COUNT 3.29 M/mm3 (4.20-5.60); REDCELL DISTRIBUTION WIDTH-CV 16.3 % (11.5-14.5); WHITE BLOOD COUNT 16.9 K/mm3 (4.8-10.8)
[2017-04-20 07:16] LABS: HEMATOCRIT 28.9 % (42.0-52.0); HEMOGLOBIN 8.9 g/dl (13.5-18.0); MEAN CORPUSCULAR HEMOGLOBIN 27 pg (27.0-31.0)
[2017-04-20 08:17] VITALS: BP 139/57; PULSE 86; TEMP 98.5
[2017-04-20 10:56] LABS: CALCIUM 9.3 mg/dL (8.4-10.2); CREATININE, serum 1.2 mg/dL (0.66-1.25); MAGNESIUM 2.3 mg/dL (1.6-2.3)
[2017-04-20 11:49] VITALS: BP 136/66; PULSE 97; TEMP 98
[2017-04-20 14:58] VITALS: BP 126/75; PULSE 49; TEMP 97.8
[2017-04-20 21:04] VITALS: BP 134/87; PULSE 77; TEMP 98.3
[2017-04-21] VITALS (7 sets, daily range): BP systolic 98–145; BP diastolic 50–75; PULSE 80–104; TEMP 97.9–98.3
[2017-04-21 10:56] LABS: CALCIUM 9.5 mg/dL (8.4-10.2); CREATININE, serum 1.18 mg/dL (0.66-1.25); MAGNESIUM 2.3 mg/dL (1.6-2.3); POTASSIUM 3.9 mmol/L (3.4-5.0)
[2017-04-22] VITALS (10 sets, daily range): BP systolic 93–144; BP diastolic 42–67; PULSE 61–93; TEMP 98.2–98.7
[2017-04-22 06:43] LABS: BASO % 0.1 % (0.0-2.0); EOS % 0.1 % (0-4.0); GRAN % 85.8 % (42.2-75.2); LYMPH % 5.6 % (20.0-51.0); MEAN CELL VOLUME 88 fl (80.0-100.0); MEAN CORPUSCULAR HGB CONC 31 g/dl (33.0-37.0); MEAN PLATELET VOLUME 9.3 fl (7.4-10.4); MONO # 1.3 (0.1-0.6); MONO % 7.3 % (1.7-9.3); PLATELET COUNT 331 K/mm3 (130-400); RED BLOOD COUNT 3.26 M/mm3 (4.20-5.60); REDCELL DISTRIBUTION WIDTH-CV 16.4 % (11.5-14.5); WHITE BLOOD COUNT 17.4 K/mm3 (4.8-10.8)
[2017-04-22 06:44] LABS: HEMATOCRIT 28.7 % (42.0-52.0); HEMOGLOBIN 8.9 g/dl (13.5-18.0); MEAN CORPUSCULAR HEMOGLOBIN 27 pg (27.0-31.0)
[2017-04-22 06:56] LABS: CREATININE, serum 1.12 mg/dL (0.66-1.25); MAGNESIUM 2.2 mg/dL (1.6-2.3)
[2017-04-23 05:00] VITALS: BP 129/46; PULSE 75; TEMP 98.1
[2017-04-23 06:57] LABS: BASO % 0.1 % (0.0-2.0); EOS # 0.1 (0.0-0.7); EOS % 0.2 % (0-4.0); GRAN # 18.8 (1.4-6.5); GRAN % 88.9 % (42.2-75.2); LYMPH # 0.7 (1.2-3.4); LYMPH % 3.4 % (20.0-51.0); MEAN CELL VOLUME 90 fl (80.0-100.0); MEAN CORPUSCULAR HGB CONC 30 g/dl (33.0-37.0); MEAN PLATELET VOLUME 9.8 fl (7.4-10.4); MONO # 1.4 (0.1-0.6); MONO % 6.5 % (1.7-9.3); PLATELET COUNT 293 K/mm3 (130-400); RED BLOOD COUNT 3.21 M/mm3 (4.20-5.60); REDCELL DISTRIBUTION WIDTH-CV 16.3 % (11.5-14.5)
[2017-04-23 07:05] LABS: HEMATOCRIT 28.9 % (42.0-52.0); HEMOGLOBIN 8.7 g/dl (13.5-18.0); MEAN CORPUSCULAR HEMOGLOBIN 27 pg (27.0-31.0); WHITE BLOOD COUNT 21.2 K/mm3 (4.8-10.8)
[2017-04-23 07:14] LABS: CALCIUM 8.8 mg/dL (8.4-10.2); CREATININE, serum 1.15 mg/dL (0.66-1.25); MAGNESIUM 2.2 mg/dL (1.6-2.3); POTASSIUM 3.9 mmol/L (3.4-5.0)
[2017-04-23 08:52] VITALS: BP 90/50; PULSE 72; TEMP 98
[2017-04-23 10:30] VITALS: BP 112/53; PULSE 79
[2017-04-23 16:09] VITALS: BP 116/62; PULSE 82; TEMP 98.7
[2017-04-23 20:45] VITALS: BP 127/50; PULSE 92; TEMP 98.4
[2017-04-23 22:55] VITALS: BP 131/59; PULSE 82; TEMP 98.4
[2017-04-24] VITALS (8 sets, daily range): BP systolic 76–118; BP diastolic 40–64; PULSE 75–85; TEMP 97.2–98.2
[2017-04-24 07:58] LABS: BASO % 0.1 % (0.0-2.0); EOS # 0.1 (0.0-0.7); EOS % 0.7 % (0-4.0); GRAN # 17.9 (1.4-6.5); GRAN % 87.7 % (42.2-75.2); LYMPH # 0.7 (1.2-3.4); LYMPH % 3.5 % (20.0-51.0); MEAN CELL VOLUME 90 fl (80.0-100.0); MEAN CORPUSCULAR HGB CONC 30 g/dl (33.0-37.0); MEAN PLATELET VOLUME 9.6 fl (7.4-10.4); MONO # 1.5 (0.1-0.6); MONO % 7.2 % (1.7-9.3); PLATELET COUNT 298 K/mm3 (130-400); RED BLOOD COUNT 3.17 M/mm3 (4.20-5.60); REDCELL DISTRIBUTION WIDTH-CV 16.3 % (11.5-14.5)
[2017-04-24 08:01] LABS: HEMATOCRIT 28.6 % (42.0-52.0); HEMOGLOBIN 8.6 g/dl (13.5-18.0); MEAN CORPUSCULAR HEMOGLOBIN 27 pg (27.0-31.0); WHITE BLOOD COUNT 20.4 K/mm3 (4.8-10.8)
[2017-04-24 08:03] LABS: CALCIUM 8.8 mg/dL (8.4-10.2); CREATININE, serum 1.01 mg/dL (0.66-1.25); POTASSIUM 3.4 mmol/L (3.4-5.0)
[2017-04-25 03:31] VITALS: BP 125/48; PULSE 87; TEMP 97.4
[2017-04-25 07:25] LABS: MEAN CELL VOLUME 89 fl (80.0-100.0); MEAN CORPUSCULAR HGB CONC 30 g/dl (33.0-37.0); MEAN PLATELET VOLUME 9.6 fl (7.4-10.4); PLATELET COUNT 292 K/mm3 (130-400); RED BLOOD COUNT 3.06 M/mm3 (4.20-5.60); REDCELL DISTRIBUTION WIDTH-CV 16.5 % (11.5-14.5)
[2017-04-25 07:28] LABS: HEMATOCRIT 27.2 % (42.0-52.0); HEMOGLOBIN 8.2 g/dl (13.5-18.0); MEAN CORPUSCULAR HEMOGLOBIN 27 pg (27.0-31.0)
[2017-04-25 07:29] LABS: ADD PATHOLOGY DIFF REVIEW NO
[2017-04-25 07:37] LABS: CREATININE, serum 0.96 mg/dL (0.66-1.25); MAGNESIUM 2.3 mg/dL (1.6-2.3); POTASSIUM 3.7 mmol/L (3.4-5.0)
[2017-04-25 08:02] VITALS: BP 119/45; PULSE 104; TEMP 100.4
[2017-04-25 08:53] LABS: ANISOCYTOSIS 1+; BAND 18 % (0-10); METAMYELOCYTE 1 % (0-0); MYELOCYTE 2 % (0-0); NEUTROPHILS 76 % (42.0-75.2); PLATELET ESTIMATE NORMAL (NORMAL); TOTAL CELLS COUNTED 100
[2017-04-25 12:00] VITALS: PULSE 76; TEMP 98.4
[2017-04-25 12:27] LABS: GLUCOSE,PLEURAL FLUID 135 mg/dL
[2017-04-25 13:23] LABS: PLEURAL FLUID - PMN 15.9 % (0-25)
[2017-04-25 20:09] LABS: PLEURAL FLUID APPEARANCE CLOUDY; PLEURAL FLUID COLOR RED
[2017-04-25 20:13] LABS: PLEURAL FLUID TUBE #1
== END 2017-04-25 14:33 | DRG 186 ==
LOC: COL.ER 18:35 → ICU 21:11 → MEDICAL 21:11 → ICU 04-17 08:37 → MEDICAL 04-17 13:35
PROVIDERS: Emergency Medicine; Internal Medicine; Internal Medicine Pulmonary Disease; Nurse Practitioner Family; Physician Assistant; Surgery
PROC: 0W993ZX Drainage of Right Pleural Cavity, Percutaneous Approach, Diagnostic (ICD-10-PCS; 2017-04-16)
PROC: 0W9900Z Drainage of Right Pleural Cavity with Drainage Device, Open Approach (ICD-10-PCS; principal; 2017-04-22 08:30)
DX: J94.2 Hemothorax (principal); J96.22 Acute and chronic respiratory failure with hypercapnia; I13.0 Hypertensive heart and chronic kidney disease with heart failure and stage 1 through stage 4 chronic kidney disease, or unspecified chronic kidney disease; Q21.1 Atrial septal defect; I50.22 Chronic systolic (congestive) heart failure; J90 Pleural effusion, not elsewhere classified; E11.22 Type 2 diabetes mellitus with diabetic chronic kidney disease; N18.2 Chronic kidney disease, stage 2 (mild); Z79.4 Long term (current) use of insulin; I25.10 Atherosclerotic heart disease of native coronary artery without angina pectoris; Z95.5 Presence of coronary angioplasty implant and graft; E66.01 Morbid (severe) obesity due to excess calories; Z68.37 Body mass index [BMI] 37.0-37.9, adult; J44.9 Chronic obstructive pulmonary disease, unspecified; E11.42 Type 2 diabetes mellitus with diabetic polyneuropathy; I48.2 Chronic atrial fibrillation; Z79.01 Long term (current) use of anticoagulants; E86.0 Dehydration; N40.1 Benign prostatic hyperplasia with lower urinary tract symptoms; R33.8 Other retention of urine
CPT/HCPCS: 99223-AI; 99232-AI; 99233-AI; 99239; A4315; A7048; C1729; C1751; C9113; J1160; J1644; J1815; J1940; J2185; J2250; J2270; J2704; J2930; J3010; J3370; J3480; J7030; J7040; J7050; J7512; Q9967

== ENCOUNTER → 2017-05-07 | Outpatient (REF) | LOC: ZAIV 05-06 06:20 | DX: Z02.89 Encounter for other administrative examinations (principal) ==